=== PATIENT | female | born 1960 | race Caucasian/White ===

== ENCOUNTER 2019-02-04 10:23 | Inpatient (IN) ==
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
[~2019-02-04 10:23] MED LIST: Ropivacaine/PF 0.5% 24.62 ML, EPINEPHrine 0.25 MG, Ketorolac 15 MG, Water for inj. (ste... IR ONE
--- NOTE | 2019-02-04 10:35 | History & Physical Report ---
Date of Encounter: 02/04/19 Time of Encounter: 10:35 24 Hour HP Update - Instructions Instructions: If the History and Physical is less than 30 days old and was completed prior to A.M. admission and or procedure and has NOT been updated on calendar day of procedure please complete this update prior to performing procedure. - Update Patient reports changes in Medical Condition: No Changes in examination, assessment, or condition: No Changes in Medication: No Preop tests/diagnostics Reviewed: Yes Surgery Remains Indicated: Yes Consent for Planned Operative Procedure(s) Verified: Yes - Pre-Operative Checklist Preoperative Checklist Indicated: No Prophylactic Antibiotic Ordered: Yes Is VTE Prophylaxis Indicated?: Yes
[2019-02-04] MEDS ORDERED: Clindamycin 900 MG/50 ML 900 MG/50 ML IV.SOLN IVPB ONE (10:44)
[2019-02-04] MEDS ORDERED: Albuterol 2.5 MG/3 ML NEBULIZER IH ONE (10:44)
[2019-02-04] MEDS ORDERED: Ringers Solution, Lactated 1,000 ML IVC SCH ×2 (10:45→15:55)
[2019-02-04] MEDS ORDERED: *HR* Midazolam HCl 2 MG/2 ML VIAL ONE (11:17)
[2019-02-04] MEDS ORDERED: *HR* Propofol 200 MG/20 ML VIAL IVP ONE (11:17)
[2019-02-04] MEDS ORDERED: *HR* FentaNYL (PF) 100 MCG/2 ML VIAL ONE ×2 (11:17→13:08)
[2019-02-04] MEDS ORDERED: Lidocaine -MPF 2% 2 ML VIAL ONE (11:17)
[2019-02-04] MEDS ORDERED: Dexamethasone 4 MG/ML VIAL ONE ×2 (11:18→12:53)
[2019-02-04] MEDS ORDERED: Ondansetron 4 MG/2 ML VIAL ONE (11:19)
[2019-02-04] MEDS ORDERED: Famotidine 20 MG/2 ML VIAL IVP ONE (11:32)
[2019-02-04] MEDS ORDERED: Acetaminophen IV 1,000 MG/100 ML INFUS..BTL IVPB ONE (11:33)
[2019-02-04] MEDS ORDERED: *HR* OxyCODONE/APAP 10/325 TABLET PO ONE (11:45)
[2019-02-04] MEDS ORDERED: Gabapentin 300 MG CAPSULE PO ONE (11:45)
--- NOTE | 2019-02-04 11:50 | Anesthesia Evaluation PreOp ---
Date of Encounter: 02/04/19 Time of Encounter: 12:00 - Past History Planned Operation: Revision Rt TKA Cardiac History: HTN, Hyperlipidemia Pulmonary History: COPD, ZELDA Dx (does not use CPAP) MINERAL ENGINEER History: Other (Post Laminectomy Syndrome, Spinal Cord Stimulator) Other Medical History: Thyroid, Other ([place]) Anesthesia History: No Prior Anesthetic Complications : No Alcohol Use: none Drug use: none Medications and Allergies Aspirin Enteric Coated [Aspirin EC] 325 mg PO BID 10 Days #20 tablet.dr 02/04/19 [Rx] Celecoxib [Celebrex] 200 mg PO BID 02/04/19 [History] DULoxetine [Cymbalta] 30 mg PO DAILY 02/04/19 [History] Docusate Sodium [Colace] 100 mg PO BID 5 Days #10 capsule 02/04/19 [Rx] Estradiol 0.5 mg PO DAILY 02/04/19 [History] Gabapentin 600 mg PO TID 02/04/19 [History] Levothyroxine [Synthroid] 137 mcg PO DAILY@0630 02/04/19 [History] Lisinopril [Zestril] 10 mg PO DAILY 02/04/19 [History] Omeprazole [PriLOSEC] 40 mg PO DAILY 02/04/19 [History] OxyCODONE/APAP 10/325 [Percocet 10/325 MG] 1 tab PO Q6H 02/04/19 [History] SUMAtriptan Succinate [Imitrex] 6 mg SQ AD PRN 02/04/19 [History] SUMAtriptan Succinate [Imitrex] 100 mg PO AD PRN 02/04/19 [History] Spironolactone 25 mg PO DAILY 02/04/19 [History] Tizanidine HCl 4 mg PO Q6H 02/04/19 [History] dilTIAZem HCl [Diltiazem HCl] 120 mg PO DAILY 02/04/19 [History] Allergy/AdvReac Type Severity Reaction Status Date / Time Penicillins [PCN] Allergy Vomiting Verified 10/18/15 13:50 ciprofloxacin [From Cipro] AdvReac Diarrhea Verified 10/18/15 13:50 morphine AdvReac Migraine Verified 10/18/15 13:50 - Meds/Allergy Pre-op Review Medications Reviewed: Yes Allergies Reviewed: Yes Beta Blockers on Current Med List: No Anesthesia Results - Labs Laboratory Tests 01/30/19 01/30/19 01/30/19 11:50 11:50 11:50 Hgb 12.2 Hct 38.2 Plt Count 316 PT 10.3 INR 0.9 APTT 35.5 Sodium 137 Potassium 4.5 BUN 31 H Creatinine 1.05 - Imaging EKG: report reviewed Additional studies: ECHO 2019 EF 60%, no valvular dysfunction Anesthesia Exam O2 Sat Height 1.65 m Height 1.65 m Weight 119.295 kg Weight 119.295 kg O2 Sat by Pulse Oximetry 92 Vital Signs Temp Pulse Resp BP Pulse Ox 98.7 F 83 18 84/51 92 02/04/19 11:14 02/04/19 11:14 02/04/19 11:14 02/04/19 11:14 02/04/19 11:14 Height: 5'5 Weight: 263 lbs NPO (# of Hours): MN Pain Scale: 0 - HEENT Pupil (Motor): Pupils equal, EOMI Mallampati: III Teeth: Normal Oral Opening: Less than or equal to 3 - MINERAL ENGINEER LOC: Oriented MINERAL ENGINEER Motor: Normal RUE, Normal LUE, Normal RLE, Normal LLE, Normal Face MINERAL ENGINEER Sensory: Normal: RUE, LUE, RLE, LLE, Face - Cardiac Rhythm: Regular Murmur: None JVD: No Carotid Bruit: No - Pulmonary Breath Sounds: bilateral Clear Respiratory Effort: Symmetrical Anesthesia Assess/Plan ASA Score: 3 (HTN ZELDA [place] Chronic Pain) Level of consciousness: Cooperative, Oriented Anesthetic Plan: General, Regional Nerve Block Regional Nerve Block Plan: Adductor canal Reason for No Neuroaxial/Regional Block: Patient refusal, Other (Post Laminectomy Syndrome/ Spinal Stimulator in place/ Refusal) Autologous Blood: No Monitoring Plan: Standard Monitors Recovery Plan: PACU (Discussed GA, Adductor Canal Block, Prefers no spinal)
[2019-02-04] MEDS ORDERED: Ropivacaine/PF 0.5% 30 ML VIAL ONE (11:51)
[2019-02-04] MEDS ORDERED: ROPIVACAINE/PF/NS 0.25% 1 EACH SYRINGE INTRAART ONE (11:57)
[2019-02-04] MEDS ORDERED: Ethanol\\Acetic Acid\\Na Ace\\Ben 1,000 ML IRRIG.SOLN IR ONE ×2 (12:18→12:32)
--- NOTE | 2019-02-04 12:21 | Anesthesia Procedures ---
Date of Encounter: 02/04/19 Time of Encounter: 12:10 Procedures: Anesthesia - Nerve Block Procedure Date: 02/04/19 Time: 12:10 Surgical Procedure: Right TKA Checklist: Correct Patient Identifier, Correct procedure, History checked Correct side: Right Blood Thinner: No Monitor Applied: EKG, BP, Pulse Oximetry Supplemental Oxygen via Nasal Cannula (L/min): 2 Sedation: Versed (mg): 2 Sedation: Fentanyl (mcg): 100 Indication: Post Op Analgesia (per milan) Pre-op Neuro Deficits: No Block Type: Other (adductor, ipack, MG) Catheter placed: No Sterile Technique: Yes Ultrasound used: Yes Anatomy identified: Yes Visual spread of Local: Yes Neuro Stimulation: No Blood on Needle Aspiration: No Smooth Injection of Local: Yes Pain with Injection of Local: No Prep: Chlorhexadine Needle: 22 x 50 mm Stimuplex (adductor), 21 x 100 mm Stimuplex (ipack and MG) Local: Ropivacaine (15cc 0.5% with 4mg decadron adductor, 10cc 0.25% ipack, 10cc 0.25% MG) Volume (cc): 15, 10, 10 Number of Attempts: 1 Complications: None/effective block Vitals: Vital Signs/O2 Sat/Glucose, Most Recent Temp Pulse Resp BP Pulse Ox 98.7 F 83 18 84/51 92 02/04/19 11:14 02/04/19 11:14 02/04/19 11:14 02/04/19 11:14 02/04/19 11:14 Comments: [facility]
[2019-02-04] MEDS ORDERED: Tranexamic Acid 1,000 MG/10 ML VIAL ONE (12:52)
[2019-02-04] MEDS ORDERED: *HR* PHENYLEPHRINE 1,000 MCG/10 ML SYRINGE IVP ONE ×2 (13:03→13:18)
[2019-02-04] MEDS ORDERED: *HR* Phenylephrine 10 MG/ML VIAL ONE (13:19)
--- NOTE | 2019-02-04 14:00 | Orthopedic Operative Note ---
Date of procedure: 02/04/19 Pre-op diagnosis: Aseptic loosening right unicondylar knee replacement Post-op diagnosis: same Procedure: Procedure: Right revision robotic-assisted Total knee replacement Estimated blood loss: 200 cc Hardware: Metal and polyethylene replacement. [place] Femur: 4 Tibia: 4 TS insert: 16 Patella: 36 Exam Under anesthesia: 1 degree flexion contracture 7 degree varus as calculated by the robot full flexion and no instability Procedural Notes: Grade 3/4 changes patellofemoral joint loose femoral and tibial components Operative procedure: The patient was brought to the operating room and placed on the operating room table. After general anesthesia was administered the operative knee was examined. Findings were noted in the exam under anesthesia. The operative extremity was prepped and draped in sterile surgical fashion. The patient received IV antibiotics prior to skin incision. A standard midline incision was made centered over the patella. The incision was made through the old incision extending proximally and distally through the the skin and subcutaneous tissue. A medial parapatellar tendon approach was performed. Care was taken to preserve tissue along the medial aspect of the patella. And to protect the patella tendon. The deep MCL was released off the medial tibia. The infra patella fat pad was excised. The patella was everted and cut was made at the level of the insertion of the quadriceps and patella tendon. The patella was sized the guide was seated and the lug holes are drilled. Knee was brought into flexion. Patient noted to have grade 3/4 arthritic changes undersurface of patella trochlear groove as well as loose femoral and tibial components. Steinmann pins were placed in the tibia and the femur for the tibial and femoral arrays respectively. Checkpoints were also placed in the tibia and the femur for calculation purposes. The knee including the femur and the tibial registered. Osteophytes, ACL and PCL were excised at this point. Extension and flexion were assessed with a valgus stress components were adjusted on the computer to balance the knee. The components on the medial cell removed without incident, both were loose. Femoral cuts were made first with robotic assistance, these included the anterior cut posterior cuts chamfer cuts. Tibial cut was then performed with robotic assistance as well. Bone fragments were removed, as well as the medial and lateral meniscus. The size 4 femoral guide was seated box cut was made lug holes are drilled. The size 4 tibial tray was seated and prepared with the fin cutter. Trial reduction with the 16 TS Corinna revealed extension of 0 degree and 3 degree varus full flexion. No varus valgus instability. Trial reduction revealed excellent patella tracking. All trial components were removed all bony surfaces were irrigated. The Tibia was seated followed by the femur, The selected Corinna size was seated and secured patella. Patient had similar findings for motion and stability. The knee was closed by the PA. The knee was then irrigated out with 2 L of pulse irrigation. The extensor mechanism was closed with #2 FiberWire suture and #2 PDS suture. The subcutaneous tissue was then irrigated and closed deep with #1 PDS suture superficially with 0 PDS suture and skin was closed with zip tie The patient was then placed in a sterile dressing and a postoperative brace extubated and transferred to recovery room in stable condition. Anesthesia: GETA Surgeon: Caden Leon Was there an bindery assistant present: No Estimated blood loss (cc): 200 Condition: stable Disposition: PACU
--- NOTE | 2019-02-04 15:04 | Anesthesia Evaluation Post Op ---
Date of Encounter: 02/04/19 Time of Encounter: 15:02 - Vital Signs Vital Signs: Last Vital Signs Temp 99 F 02/04/19 14:35 Pulse 84 02/04/19 14:45 Resp 14 02/04/19 14:45 BP 106/56 02/04/19 14:45 Pulse Ox 94 02/04/19 14:45 - Lungs Lungs: Clear Ascult./Percussion - Airway Airway: Non-obstructed - Cardiovascular Regular Rate - Mental Status Mental Status: Alert & Oriented, Answers Appropriately - Pain Pain Scale: 1 - Nausea Vomiting Nausea Vomiting: Not Present - Hydration Hydration: NPO - Discharge PostOp Status: Transfer Patient to floor
[2019-02-04 15:19] LABS: Hematocrit 33.7 % (35.3-44.9)
[2019-02-04 15:21] LABS: Hemoglobin 10.6 g/dL (11.5-15.4)
[2019-02-04] MEDS ORDERED: Sennosides 8.6 MG TABLET PO PRN (15:55)
[2019-02-04] MEDS ORDERED: *HR* OxyCODONE Immed Rel 5 MG TABLET PO PRN (15:55)
[2019-02-04] MEDS ORDERED: Ondansetron 4 MG/2 ML VIAL IVP PRN (15:55)
[2019-02-04] MEDS ORDERED: MOM Conc 10 ML UD.LIQ PO PRN (15:55)
[2019-02-04] MEDS ORDERED: Naloxone 0.4 MG/ML INJ IVP PRN (15:55)
[2019-02-04] MEDS ORDERED: SUMAtriptan 6 MG/0.5 ML SQ PRN (15:55)
[2019-02-04] MEDS ORDERED: *HR* HYDROmorphone (PF) 1 MG/ML SYRINGE IVP PRN (15:55)
[2019-02-04] MEDS ORDERED: SUMAtriptan succinate 50 MG TABLET PO PRN (15:55)
[2019-02-04] MEDS ORDERED: *HR* Promethazine 25 MG/ML VIAL IVP PRN (15:55)
[2019-02-04] MEDS: Clindamycin 900 MG/50 ML 900 MG/50 ML IV.SOLN IVPB SCH ×2 (16:15→23:19)
[2019-02-04] MEDS: tiZANidine 4 MG TABLET PO SCH ×2 (16:15→23:20)
[2019-02-04] MEDS ORDERED: HYDROcodone BIT/Homatropine 5 MG TABLET PO PRN (17:04)
[2019-02-04] MEDS ORDERED: Acetaminophen 325 MG TABLET PO PRN (17:08)
[2019-02-04] MEDS: Ascorbic Acid 500 MG TABLET PO SCH (18:16)
[2019-02-04] MEDS: *HR* Enoxaparin 30 MG/0.3 ML SYRINGE SQ SCH (18:16)
[2019-02-04] MEDS ORDERED: 0.9 % Sodium Chloride 1,000 ML ONE (19:11)
[2019-02-04] MEDS ORDERED: 0.9 % Sodium Chloride 1,000 ML IV ONE (19:17)
[2019-02-04] MEDS ORDERED: Acetaminophen IV 1,000 MG/100 ML INFUS..BTL IVPB PRN (19:43)
[2019-02-04] MEDS: Gabapentin 300 MG CAPSULE PO SCH ×2 (19:56→19:58)
[2019-02-04] MEDS: Celecoxib 200 MG CAPSULE PO SCH (19:57)
[2019-02-04 20:00] LABS: Basophils % 0.2 %; Eosinophils # 0.1 K/mcL (0.0-0.6); Eosinophils % 0.4 %; Hematocrit 29.4 % (35.3-44.9); Hemoglobin 9.2 g/dL (11.5-15.4); Lymphocytes # 0.8 K/mcL (0.6-4.6); Mean Corpuscular HGB Conc 31.3 g/dL (31.6-35.5); Mean Corpuscular Hemoglobin 32.1 pg (28.0-33.3); Mean Corpuscular Volume 102.4 fL (83.0-100.0); Mean Platelet Volume 9.9 fL (9.4-12.4); Monocytes # 0.1 K/mcL (0.0-1.3); Neutrophils # 10.4 K/mcL (1.6-8.9); Platelet Count 264 K/mcL (140-400); Red Blood Count 2.87 M/mcL (3.82-4.97); Red Cell Distribution Width 13.5 % (11.5-14.5); Segmented Neutrophils % 90.4 %
[2019-02-04 20:05] LABS: White Blood Count 11.5 K/mcL (4.3-11.1)
[2019-02-04 20:22] LABS: Albumin 3.6 g/dL (3.5-5.7); Bilirubin,Total 0.3 mg/dL (0.3-1.0); Calcium 8.1 mg/dL (8.6-10.3); Globulin 1.8 g/dL (2.4-3.5); Potassium 6.8 mEq/L (3.5-5.1); Total Protein 5.4 g/dL (6.4-8.9)
[2019-02-04] MEDS ORDERED: 0.9 % Sodium Chloride 1,000 ML IVC SCH (20:30)
--- NOTE | 2019-02-04 22:15 | Physician Discharge Referral ---
ExtendedCare Referral Info Transfer To: [facility] Provider in Charge: Dr. Leon - Diagnosis (1) Status post revision of total replacement of right knee Priority: Primary Status: Acute (2) History of unicondylar arthroplasty of right knee Priority: Primary Status: Chronic (3) Arthritis of right knee Priority: Primary Status: Chronic (4) HTN (hypertension) Priority: Secondary Status: Chronic (5) COPD (chronic obstructive pulmonary disease) Priority: Secondary Status: Chronic (6) ZELDA (obstructive sleep apnea) Priority: Secondary Status: Chronic (7) Obesity, morbid, BMI 40.0-49.9 Priority: Secondary Status: Chronic (8) Thyroid disorder Priority: Secondary Status: Chronic (9) GERD (gastroesophageal reflux disease) Priority: Secondary Status: Chronic (10) Migraines Priority: Secondary Status: Chronic (11) Anemia Priority: Secondary Status: Resolved (12) Elevated liver enzymes Priority: Secondary Status: Resolved (13) Hyponatremia Priority: Secondary Status: Acute (14) RAMON (acute kidney injury) Priority: Secondary Status: Resolved (15) Hyperkalemia Priority: Secondary Status: Resolved (16) Hypocalcemia Priority: Secondary Status: Resolved Expected Duration of Placement: <30 days Prognosis: Good Aware of Diagnosis: Patient Aware of Prognosis: Patient - Transfer Medications Home Medications: Aspirin Enteric Coated [Aspirin EC] 325 mg PO BID 10 Days #20 tablet. 02/04/19 [Rx] Celecoxib [Celebrex] 200 mg PO BID 02/04/19 [History] DULoxetine [Cymbalta] 30 mg PO DAILY 02/04/19 [History] Docusate Sodium [Colace] 100 mg PO BID 5 Days #10 capsule 02/04/19 [Rx] Estradiol 0.5 mg PO DAILY 02/04/19 [History] Gabapentin 600 mg PO TID 02/04/19 [History] Levothyroxine [Synthroid] 137 mcg PO DAILY@0630 02/04/19 [History] Omeprazole [PriLOSEC] 40 mg PO DAILY 02/04/19 [History] OxyCODONE/APAP 10/325 [Percocet 10/325 MG] 1 tab PO Q6H 02/04/19 [History] SUMAtriptan Succinate [Imitrex] 6 mg SQ AD PRN 02/04/19 [History] SUMAtriptan Succinate [Imitrex] 100 mg PO AD PRN 02/04/19 [History] Spironolactone 25 mg PO DAILY 02/04/19 [History] Tizanidine HCl 4 mg PO Q6H 02/04/19 [History] dilTIAZem HCl [Diltiazem HCl] 120 mg PO DAILY 02/04/19 [History] Allergies/Adverse Reactions: Allergy/AdvReac Type Severity Reaction Status Date / Time Penicillins [PCN] Allergy Vomiting Verified 10/18/15 13:50 ciprofloxacin [From Cipro] AdvReac Diarrhea Verified 10/18/15 13:50 morphine AdvReac Migraine Verified 10/18/15 13:50 - Respiratory Orders None Smoking Cessation: Smoking cessation has been advised. For more information, call the [employer] Tobacco Quit Line at 2-620-UNUV-NOW. - Lab Orders Lab Orders: Other (include drug levels w/frequency) (monitor CBC and BMP, repeat 48hrs) - Ancillary Orders May use pressure relief devices daily prn, May go on JOB w/family/respon democrat w/meds at nurse discretion PRN, May consult with Dentist, Geophysical Operator, House Calls Nurse PRN - Advance Directives Code Status: Full Code - Mobility Orders Chair, Ambulate - Rehabiliation Orders Rehab Potential: Good Rehab Orders: ROM Exercises, Evaluation for Physical Therapy, Evaluation for Occupational Therapy Other: Opsite dressing, leave intact until first post-operative visit. If dressing becomes >50% saturated, contact office, remove dressing and place appropriate dressing in its place. Do not allow for dressing to get wet. Zipline/Tyler in place, plan to remove at post-operative day #14-16. Total Joint Precautions x 6 weeks Apply cold therapy wrap 3-6x/day for 20 minutes at a time. Encourage ambulation throughout the day Use Incentive spirometer 10x/hour. Elevate affected extremity above heart as tolerated. Brace: Wear knee immobilizer at night x 2 weeks - Treatments Skin tear care topically daily PRN per policy - Diet Orders Regular CERTIFICATION: I certify that the transfer of the above named patient to an Extended Care Facility is necessary for the continuing treatment of the diagnosis listed. The above information is true and accurate reflection of patient's current condition. Confidential - Redisclosure prohibited without a patient's written consent.
[2019-02-05] MEDS: tiZANidine 4 MG TABLET PO SCH ×5 (00:58→23:47)
--- NOTE | 2019-02-05 01:33 | Internal Medicine Consult Note ---
Date of Encounter: 02/05/19 Time of Encounter: 00:30 - Assessment and Plan (1) Status post revision of total replacement of right knee Current Visit: Yes Status: Acute Assessment and plan: Acute status post revision of total replacement of right knee. Patient underwent right revision robotic-assisted total knee replacement today. Became hypotensive post-procedure. Abnormal labs needed addressed as well. Consult to Hospitalist placed for medical management. Hgb 9.2, potassium 6.8, creatinine 2.11, GFR 24, Calcium 8.1, AST 54, ALT 70. On exam, pt. is sleepy but answers questions appropriately when awake. Post IV fluid bolus, BP has been >100 systolically. HR 83 at time of exam. Patient reports back pain and pain in right knee. D/t continued hypotension, opioid pain medications held for now. Nurse instructed to hold HTN medications for now as well. Monitoring f/u labs for improvement in above lab values. Pt. is high risk for further morbidity and complications d/t current status post revision of total replacement of right knee, current hypotension, current hyperkalemia, current hyponatremia, current a I current el evated liver enzymes, drop in Hgb, current leukocytosis, and comorbidities/risk factors. Inpatient. (2) Drop in hemoglobin Current Visit: Yes Status: Acute Assessment and plan: Acute drop in Hgb. 10.6 at 14:49 and 9.2 at 19:46. Estimated blood loss during procedure 200 cc. Type and screen ordered. Monitor f/u labs. (3) Leukocytosis Current Visit: Yes Status: Acute Assessment and plan: Acute leukocytosis w/WBC of 11.5. Likely reactive. Pt. received IVPB clindamycin pre and post-procedure. No identifiable infection source. Will monitor a.m. labs for improvement. Pt. afebrile and asymptomatic. Qualifiers: Leukocytosis type: other Qualified Code(s): D72.828 - Other elevated white blood cell count (4) Hyponatremia Current Visit: Yes Status: Acute Assessment and plan: Acute hyponatremia w/sodium of 131. Pt. received 1L 0.9 bolus for hypotension and is receiving 0.9 maintenance fluids at 75/hr. Continuous cardiac telemetry. Monitor f/u labs for improvement. (5) Hyperkalemia Current Visit: Yes Status: Acute Assessment and plan: Acute hyperkalemia w/potassium of 6.8. Recheck at 22:20 after IV fluid bolus was 6.7. 15 gm PO kayexalate ordered and administered. F/u K level at 02:00. Will administer additional dosing of kayexalate if warranted and recheck K at 05:00. Continuous cardiac telemetry. EKG shows sinus rhythm with possible right ventricular conduction delay and minimal ST depressions. Monitor closely. (6) RAMON (acute kidney injury) Current Visit: Yes Status: Acute Assessment and plan: Acute kidney injury. Pt. denies hx of CKD. Creatinine 2.11 and GFR 24 post- surgery. Pt. received 1L 0.9 IV fluid bolus for hypotension and is receiving 0.9 IV maintenance fluids at 75/hr. Monitor f/u labs and I&O. Naproxen on hold. Will avoid other nephrotoxins. (7) Elevated liver enzymes Current Visit: Yes Status: Acute Assessment and plan: Acutely elevated liver enzymes. AST 54 and ALT 70. No hx of liver disease or alcohol abuse. Will avoid acetaminophen at this time. Repeat hepatic panel in a.m. labs to assess for improvement after IV fluid resuscitation. (8) Hypocalcemia Current Visit: Yes Status: Acute Assessment and plan: Acute hypocalcemia w/calcium of 8.1. PO calcium carbonate ordered GABY. Monitor f/u labs. (9) HTN (hypertension) Current Visit: Yes Status: Chronic Assessment and plan: Hx of chronic HTN. Monitor pt. and VS. Patient is currently hypotensive, so holding HTN medications for now. If pt. becomes hypertensive, will continue patient's spironolactone, lisinopril, and diltiazem. Qualifiers: Hypertension type: essential hypertension Qualified Code(s): I10 - Essenti al (primary) hypertension (10) COPD (chronic obstructive pulmonary disease) Current Visit: Yes Status: Chronic Assessment and plan: Hx of chronic COPD. Stable. Monitor. Supplemental O2 with titration and SPO2 monitoring. Qualifiers: COPD type: unspecified COPD Qualified Code(s): J44.9 - Chronic obstructive pulmonary disease, unspecified (11) GERD (gastroesophageal reflux disease) Current Visit: Yes Status: Chronic Assessment and plan: Hx of chronic GERD. Continue pts. Prilosec. 4 mg IVP Zofran every 8 hour when necessary for nausea and vomiting. Qualifiers: Esophagitis presence: esophagitis presence not specified Qualified Code(s): K21.9 - Gastro-esophageal reflux disease without esophagitis (12) Migraines Current Visit: Yes Status: Chronic Assessment and plan: Hx of chronic migraines. Continue pts. Imitrex and monitor closely. Qualifiers: Migraine type: with aura Status migrainosus presence: with status migrainosus Intractability: intractable Qualified Code(s): G43.111 - Migraine with aura, intractable, with status migrainosus (13) ZELDA (obstructive sleep apnea) Current Visit: Yes Status: Chronic Assessment and plan: Hx of chronic ZELDA. Pt. does not currently use BiPAP/CPAP. Supplemental O2 with titration and SPO2 monitoring. (14) Obesity, morbid, BMI 40.0-49.9 Current Visit: Yes Status: Chronic Assessment and plan: Hx of chronic morbid obesity. Encourage lifestyle modifications and dietary changes. (15) DVT prophylaxis Current Visit: Yes Status: Acute Assessment and plan: Bilateral foot pumps for DVT prophylaxis. - Time Spent With Patient Total time spent is greater than 50% in coordination of care (as documented) at patient's floor/unit and/or counseling patient: Greater than 35 minutes Internal Medicine - CN: HPI - Data of Consult Patient: new to practice Consult date: 02/05/19 Requesting Physician: Caden Leon MD - Consult Narrative History of present illness: Ms. Gonzales is a 58 year old female w/PMH of thyroid disease, arthritis, COPD, HTN, GERD, migraines, and chronic back pain presents for Hospitalist consult for medical management of several issues post-total right knee replacement today. Post-surgery, patient was found to be hypotensive and given a bolus of IV fluids. Consult to Hospitalist placed for medical management. Hgb 9.2, potassium 6.8, creatinine 2.11, GFR 24, Calcium 8.1, AST 54, ALT 70. On exam, pt. is sleepy but answers questions appropriately when awake. Post IV fluid bolus, BP has been >100 systolically. HR 83 at time of exam. Patient reports back pain and pain in right knee. D/t continued hypotension, opioid pain medications held for now. Nurse instructed to hold HTN medications for now as well. Patient denies nausea, vomiting, headache, unusual bleeding, abdominal pain, numbness, tingling, dizziness, lightheadedness, chest pain, or SOB. Past Med Surg Social Fam HX - Past Medical History Source: patient, old records reviewed Medical history: arthritis, CHF, COPD, GERD, hypertension, migraine, thyroid disease, other Additional medical history: DDD, RA Psychiatric history: no psych history - Past Surgical History Surgical History: appendectomy, Additional surgical history: TONSILS. LEFT FOOT. BREAST LUMP RIGHT. ENDOMETRIOSIS. SKYE CARP. TUNNEL. SKYE KNEE SCOPE. TOTAL KNEE SKYE. GALL BLAD NIKITA. LUMBAR. RIGHT SHOULDER. LEFT FOOT ARCH. RIGHT FOOT ARCH. SPINAL CORD STIMULATOR - Social History Smoking Status: Never smoker Smokeless Tobacco Status: No Alcohol use: none Drug use: none Current living situation: Home Activity Level: Independent ambulation Recent Out of Country Travel Within the Last 8 Weeks: No Exposure or Possible Exposure to Illness During Travel: No - Family History Father Race: Family Member Ethnicity: Non- Living Status: Still Living Hx Family Cardiac Disorders: Yes (CAD) Hx Family Endocrine Disorder: Yes (DM) Mother Race: Family Member Ethnicity: Non- Living Status: Still Living Hx Family Cardiac Disorders: Yes (HTN) Hx Family Cancer: Yes (Breast (Double mastectomy)) Hx Family Endocrine Disorder: Yes (Thyroid disease) Brother Race: Family Member Ethnicity: Non- Living Status: Still Living Hx Family Medical Disorders: No Sister Race: Family Member Ethnicity: Non- Living Status: Still Living Hx Family Medical Disorders: No - Constitutional Constitutional: as per HPI - EENT Eyes: as per HPI Ears: as per HPI Nose, mouth and throat: as per HPI - Breasts Breasts: as per HPI - Cardiovascular Cardiovascular ROS IM: as per HPI - Respiratory Respiratory: as per HPI - Gastrointestinal Gastrointestinal: as per HPI - Genitourinary Genitourinary: as per HPI Menstruation: as per HPI - Musculoskeletal Musculoskeletal ROS IM: as per HPI, back pain, other (Rt knee pain post total knee replacement) - Integumentary Integumentary IM: as per HPI - Neurological Neurological ROS: as per HPI - Psychiatric Psychiatric: as per HPI - Endocrine Endocrine IM: as per HPI - Hematologic/Lymphatic Hematologic/Lymphatic: as per HPI - Allergic/Immunologic Allergic/Immunologic: as per HPI Internal Medicine - CN: Meds Aspirin Enteric Coated [Aspirin EC] 325 mg PO BID 10 Days #20 tablet. 02/04/19 [Rx] Celecoxib [Celebrex] 200 mg PO BID 02/04/19 [History] DULoxetine [Cymbalta] 30 mg PO DAILY 02/04/19 [History] Docusate Sodium [Colace] 100 mg PO BID 5 Days #10 capsule 02/04/19 [Rx] Estradiol 0.5 mg PO DAILY 02/04/19 [History] Gabapentin 600 mg PO TID 02/04/19 [History] Levothyroxine [Synthroid] 137 mcg PO DAILY@0630 02/04/19 [History] Lisinopril [Zestril] 10 mg PO DAILY 02/04/19 [History] Omeprazole [PriLOSEC] 40 mg PO DAILY 02/04/19 [History] OxyCODONE/APAP 10/325 [Percocet 10/325 MG] 1 tab PO Q6H 02/04/19 [History] SUMAtriptan Succinate [Imitrex] 6 mg SQ AD PRN 02/04/19 [History] SUMAtriptan Succinate [Imitrex] 100 mg PO AD PRN 02/04/19 [History] Spironolactone 25 mg PO DAILY 02/04/19 [History] Tizanidine HCl 4 mg PO Q6H 02/04/19 [History] dilTIAZem HCl [Diltiazem HCl] 120 mg PO DAILY 02/04/19 [History] Allergy/AdvReac Type Severity Reaction Status Date / Time Penicillins [PCN] Allergy Vomiting Verified 10/18/15 13:50 ciprofloxacin [From Cipro] AdvReac Diarrhea Verified 10/18/15 13:50 morphine AdvReac Migraine Verified 10/18/15 13:50 Hospitalist - CN: Exam - Constitutional Vitals: Temp Pulse Resp BP Pulse Ox 97.3 F L 79 16 103/68 94 02/04/19 23:21 02/05/19 00:53 02/04/19 23:21 02/05/19 00:53 02/04/19 23:21 General appearance IM: Present: cooperative, mild distress (Back pain and pain in RLE), A&O X 3, morbidly obese, pleasant, answers questions appropriately Exam: Patient examined at bedside. Pt. reports back pain which is chronic as well as pain in RLE r/t total knee replacement today. Pt. denies any other sx or complaints at this time. VS: 97.3F temp, HR 85, RR 16, BP 116/74, SPO2 94% on 3 L via nasal cannula. - Head Head exam: Present: atraumatic - Eye Eye exam: Present: PERRL, conjuntiva pink, sclera anicteric Pupils: Present: normal accommodation, PERRL - ENT ENT exam: Present: normal exam - Neck Neck exam general surgery: Present: normal inspection - Respiratory Respiratory exam: Present: CTAB - Cardiovascular Cardiovascular exam IM: Present: RRR, +S1, +S2 - GI/Abdominal GI/Abdominal exam IM: Present: soft, no peritoneal signs - Rectal Rectal exam: Present: deferred - Additional comments: exam deferred. - Extremities Exam Extremities exam IM: Present: pedal edema (Non-pitting), tenderness (RLE), warm, radial pulses palpable and symmetrical - Back Exam Back exam: Present: normal inspection - Neurological Exam Neurological exam: Present: alert, CN II-XII intact, oriented X3, no focal deficits, strengths equal and symetr throughout - Psychiatric Psychiatric exam: Present: normal affect, normal mood - Skin Skin exam IM: Present: dry, intact Internal Medicine - CN: Reslt - Labs CBC & Chem 7: 02/05/19 02:27 02/04/19 22:20 Labs: Short CBC 02/04/19 02/04/19 Range/Units 14:49 19:46 WBC 11.5 H (4.3-11.1) K/mcL Hgb 10.6 L D 9.2 L (11.5-15.4) g/dL Hct 33.7 L 29.4 L (35.3-44.9) % Plt Count 264 (140-400) K/mcL Neutrophils # 10.4 H (1.6-8.9) K/mcL BMP 02/04/19 02/04/19 19:46 22:20 Sodium 131 L Potassium 6.8 H* 6.7 H* Chloride 103 Carbon Dioxide 22 L BUN 49 H Creatinine 2.11 H Glucose 170 H Calcium 8.1 L Liver Function 02/04/19 Range/Units 19:46 Total Bilirubin 0.3 (0.3-1.0) mg/dL AST 54 H (13-39) Units/L ALT 70 H (7-52) Units/L Alkaline Phosphatase 120 H (34-104) Units/L Albumin 3.6 (3.5-5.7) g/dL - EKG Data EKG shows normal: sinus rhythm - EKG Data Prior EKG available for review: no EKG comments: 02/05/19 02:08 EKG dated 02/04/19 shows sinus rhythm with possible right ventricular conduction delay and minimal ST depression. - Impressions Impressions Knee X-Ray 02/04/19 01:00 IMPRESSION: Status post right knee arthroplasty D/ / Dillon Irene MD / Dillon Irene MD Interpreting Provider: Dillon Irene MD - Diagnostic Studies Other Images Additional comments: Impressions Knee X-Ray 02/04/19 01:00 IMPRESSION: Status post right knee arthroplasty D/ / Dillon Irene MD / Dillon Irene MD Interpreting Provider: Dillon Irene MD Consult Discharge Plan - Plan Referrals: Yuliya Carranza MD [Primary Care Provider] -
[2019-02-05] MEDS: 0.9 % Sodium Chloride 1,000 ML IVC SCH (02:08)
[2019-02-05 02:48] LABS: Basophils % 0.1 %; Hematocrit 32.5 % (35.3-44.9); Immature Granulocytes % 0.7 % (0-4); Lymphocytes # 0.9 K/mcL (0.6-4.6); Lymphocytes % 5.8 %; Mean Corpuscular HGB Conc 30.8 g/dL (31.6-35.5); Mean Corpuscular Hemoglobin 31.3 pg (28.0-33.3); Mean Corpuscular Volume 101.9 fL (83.0-100.0); Mean Platelet Volume 10.2 fL (9.4-12.4); Monocytes # 0.3 K/mcL (0.0-1.3); Neutrophils # 13.6 K/mcL (1.6-8.9); Platelet Count 308 K/mcL (140-400); Red Blood Count 3.19 M/mcL (3.82-4.97); Red Cell Distribution Width 13.3 % (11.5-14.5); Segmented Neutrophils % 91.4 %; White Blood Count 14.9 K/mcL (4.3-11.1)
[2019-02-05 03:05] LABS: Calcium 8.7 mg/dL (8.6-10.3); Potassium 6.3 mEq/L (3.5-5.1)
[2019-02-05 03:06] LABS: Albumin 4.2 g/dL (3.5-5.7); Albumin/Globulin Ratio 1.9 (1.1-2.2); Bilirubin,Direct 0.1 mg/dL (0.0-0.2); Bilirubin,Indirect 0.3 mg/dL (0.0-1.2); Bilirubin,Total 0.4 mg/dL (0.3-1.0); Globulin 2.2 g/dL (2.4-3.5); Total Protein 6.4 g/dL (6.4-8.9)
[2019-02-05] MEDS: *HR* Enoxaparin 30 MG/0.3 ML SYRINGE SQ SCH ×2 (05:46→18:42)
--- NOTE | 2019-02-05 06:44 | Orthopedics Progress Note ---
Date of Encounter: 02/05/19 Time of Encounter: 06:43 Subjective Interval history: Patient was seen this morning doing well without complaints. Afebrile vital signs stable. Operative extremity: Neurovascularly intact Dressing clean dry and intact Calves nontender Assessment and plan: Continue with postoperative care Hyperkalemia, followed by hospitalist hematocrit 32 Objective Vital signs: Vital Signs Temp Pulse Resp BP Pulse Ox 02/05/19 05:38 87 109/70 02/05/19 04:23 93/61 02/05/19 03:08 86 113/72 02/05/19 02:59 98.7 F 88 18 113/69 98 02/05/19 02:23 88 112/76 02/05/19 02:08 94 101/68 02/05/19 01:53 80 100/66 02/05/19 01:38 79 103/67 02/05/19 01:23 76 110/71 02/05/19 01:08 84 117/75 02/05/19 00:53 79 103/68 02/05/19 00:38 73 111/74 02/05/19 00:23 77 102/67 02/05/19 00:08 82 109/71 02/04/19 23:53 80 102/66 02/04/19 23:38 82 110/70 02/04/19 23:21 97.3 F L 85 16 116/74 94 02/04/19 22:40 80 115/55 02/04/19 22:08 76 95/63 02/04/19 21:53 77 95/63 02/04/19 21:38 74 97/62 02/04/19 21:23 107/80 02/04/19 21:11 76 100/61 02/04/19 21:00 72 100/64 02/04/19 20:53 73 87/56 02/04/19 20:38 73 92/58 02/04/19 20:29 78 90/59 02/04/19 20:23 97.3 F L 84 18 98/62 94 02/04/19 20:20 77 98/62 02/04/19 20:13 75 88/58 02/04/19 19:55 82/56 02/04/19 19:51 90/52 02/04/19 19:35 85/50 02/04/19 19:30 75/42 02/04/19 19:25 81/46 02/04/19 19:21 83/48 02/04/19 16:03 98.3 F 87 14 103/68 97 02/04/19 15:15 98.1 F 82 12 105/47 94 02/04/19 15:05 98.1 F 85 14 100/48 95 02/04/19 14:55 81 13 94/36 96 02/04/19 14:45 84 14 106/56 94 02/04/19 14:35 99 F 87 14 114/65 96 02/04/19 12:37 86 16 102/57 98 02/04/19 12:20 86 14 97/52 96 02/04/19 12:08 81 18 99/60 91 02/04/19 11:14 98.7 F 83 18 84/51 92 Intake and Output 02/04/19 02/04/19 02/05/19 15:59 23:59 07:59 Intake Total 50 / 100 50 / 100 1800 / 1800 Output Total 300 / 1450 1150 / 1450 Balance -250 / -1350 -1100 / -1350 1800 / 1800 Intake: IV Fluids 50 / 100 50 / 100 1050 / 1050 0.9 % Sodium Chloride 1,000 ML 1000 / 1000 @ 999 mls/hr IV ONCE ONE Rx#: [id number] Cleocin Premix 900 MG/50 ML 900 50 / 100 50 / 100 50 / 50 mg In 50 ml @ 50 mls/hr IVPB Q8HR [facility] Rx#:[id number] Oral 750 / 750 Output: Estimated Blood Loss 300 / 300 Straight Cath 1150 / 1150 Other: Stool Size Large Stool Consistency soft Stool Characteristics Normal for Patient Stool Color Brown # Voids 1 # Bowel Movements 1 Weight 119.295 kg 124.3 kg Blood Glucose* 159 Patient Weight 02/05/19 23:59 Weight 124.3 kg - Labs CBC & BMP: 02/05/19 02:27 02/05/19 02:27 Labs: Abnormal lab results WBC 14.9 K/mcL (4.3-11.1) H 02/05/19 02:27 RBC 3.19 M/mcL (3.82-4.97) L 02/05/19 02:27 Hgb 10.0 g/dL (11.5-15.4) L 02/05/19 02:27 Hct 32.5 % (35.3-44.9) L 02/05/19 02:27 MCV 101.9 fL (83.0-100.0) H 02/05/19 02:27 MCHC 30.8 g/dL (31.6-35.5) L 02/05/19 02:27 Neutrophils # 13.6 K/mcL (1.6-8.9) H 02/05/19 02:27 Sodium 134 mEq/L (136-145) L 02/05/19 02:27 Potassium 6.3 mEq/L (3.5-5.1) H 02/05/19 02:27 Carbon Dioxide 20 mEq/L (23-29) L 02/05/19 02:27 BUN 41 mg/dL (6-20) H 02/05/19 02:27 Creatinine 1.48 mg/dL (0.60-1.20) H 02/05/19 02:27 Est GFR ( Amer) 44 (> 60) L 02/05/19 02:27 Est GFR (Non-Af Amer) 36 (> 60) L 02/05/19 02:27 BUN/Creatinine Ratio 28 (6-26) H 02/05/19 02:27 Glucose 173 mg/dL (70-105) H 02/05/19 02:27 POC Glucose 159 mg/dL (70-99) H 02/04/19 20:21 Calcium 8.1 mg/dL (8.6-10.3) L 02/04/19 19:46 AST 46 Units/L (13-39) H 02/05/19 02:27 ALT 80 Units/L (7-52) H 02/05/19 02:27 Alkaline Phosphatase 135 Units/L (34-104) H 02/05/19 02:27 Serum Total Protein 5.4 g/dL (6.4-8.9) L 02/04/19 19:46 Globulin 2.2 g/dL (2.4-3.5) L 02/05/19 02:27 Consult Discharge Plan - Plan Referrals: Yuliya Carranza MD [Primary Care Provider] -
[2019-02-05] MEDS ORDERED: Diltiazem CD (24hr) 120 MG CAPSULE PO SCH (09:00)
[2019-02-05] MEDS ORDERED: Spironolactone 25 MG TABLET PO SCH (09:00)
[2019-02-05] MEDS: Celecoxib 200 MG CAPSULE PO SCH ×2 (09:15→20:33)
[2019-02-05] MEDS: Multivit/Ca/Min/Fe/FA 1 TAB TABLET PO SCH (09:17)
[2019-02-05] MEDS: *HR* OxyCODONE/APAP 5/325 TABLET PO PRN ×3 (09:18→18:43)
[2019-02-05] MEDS: Ascorbic Acid 500 MG TABLET PO SCH ×2 (09:18→17:05)
[2019-02-05] MEDS: Gabapentin 300 MG CAPSULE PO SCH ×3 (09:19→20:32)
--- NOTE | 2019-02-05 11:58 | Event Note ---
Date of Encounter: 02/05/19 Time of Encounter: 15:00 I have seen and independently assessed this patient and I agree with plan per night team Plan Hyperkalemia. Poatssium was down to 5.9 this am after kayexalate administration. Will give on 45gm dose of kayexalate and repeat potassium this pm Hypotension post surgery. CBC stable. BP stable now. Possibly anesthesia related. Monitor BP. No acute signs of infection/ bleeding/hypovolemia
--- NOTE | 2019-02-05 13:08 | Electrocardiograph Report ---
[address] [address] Test Date: 2019-02-04 Pat Name: Janice Gonzales Department: 114 Room: [facility] Gender: F Travel Clerk: : 1960 Requested By: Ela Trivedi Order Number: [id number] Reading MD: Clover Pritchard Measurements Intervals [place] Rate: 78 P: 37 MA: 162 QRS: 26 QRSD: 81 T: 43 QT: 416 QTc: 449 Interpretive Statements SINUS RHYTHM POSSIBLE RIGHT VENTRICULAR CONDUCTION DELAY Nonspecific ST-T wave changes Electronically Signed On 02-05-2019 13:06:45 EDT by Clover Pritchard
--- NOTE | 2019-02-05 16:41 | Event Note ---
Date of Encounter: 02/05/19 Time of Encounter: 13:30 PCR - POD#1 s/p right TKR revision 02/04/19 Patient seen at bedside, without complaints. A&O x 3 Afebrile, vital signs stable. Dressings c/d/i, no calf tenderness to palpation, good dorsiflexion of foot, sensation intact distally. Labs reviewed. H/H - 10.0/32.5 stable, asymptomatic Appreciate hospitalist on board for medical management of postoperative hypotension and labs. - has received kayexalate K improved from 6.7 to 5.9, Na improved to 134, kidney function improving compared to preop labs. liver enzymes elevated and agree with hospitalist recommendation to hold tylenol as well as NSAIDs. Pain control: adequate Participating in PT. All questions and concerns addressed. Educated on use of incentive spirometer. Encouraged ambulation and proper hydration. Patient educated on post-operative restrictions and post-operative care. Assessment and plan: Continue with postoperative care Discharge plan: ECF when medically stable
[2019-02-05] MEDS ORDERED: *HR* OxyCODONE/APAP 5/325 TABLET PO PRN (19:01)
[2019-02-05] MEDS: Acetaminophen IV 1,000 MG/100 ML INFUS..BTL IVPB SCH (21:45)
[2019-02-06] MEDS ORDERED: Acetaminophen IV 1,000 MG/100 ML INFUS..BTL IVPB SCH
[2019-02-06] MEDS: Acetaminophen IV 1,000 MG/100 ML INFUS..BTL IVPB SCH ×4 (02:39→19:47)
[2019-02-06] MEDS: 0.9 % Sodium Chloride 1,000 ML IVC SCH ×2 (02:39→17:59)
[2019-02-06] MEDS: Temazepam 15 MG CAPSULE PO PRN (03:04)
[2019-02-06] MEDS: *HR* Enoxaparin 30 MG/0.3 ML SYRINGE SQ SCH ×2 (05:43→18:01)
[2019-02-06] MEDS: *HR* OxyCODONE Immed Rel 5 MG TABLET PO PRN ×3 (05:45→14:56)
[2019-02-06] MEDS: tiZANidine 4 MG TABLET PO SCH ×4 (05:46→19:55)
[2019-02-06] MEDS: Gabapentin 300 MG CAPSULE PO SCH ×3 (08:11→19:46)
[2019-02-06] MEDS: Celecoxib 200 MG CAPSULE PO SCH ×2 (08:11→19:47)
[2019-02-06] MEDS: Ascorbic Acid 500 MG TABLET PO SCH ×2 (08:11→17:57)
[2019-02-06] MEDS: Multivit/Ca/Min/Fe/FA 1 TAB TABLET PO SCH (08:11)
--- NOTE | 2019-02-06 08:30 | Orthopedics Progress Note ---
Date of Encounter: 02/06/19 Time of Encounter: 08:29 Subjective Interval history: Patient was seen this morning doing well without complaints. Afebrile vital signs stable. Operative extremity: Neurovascularly intact Dressing clean dry and intact Calves nontender Assessment and plan: Continue with postoperative care Potassium normalized, BP stable, plan for discharge today or tomorrow. Objective Vital signs: Vital Signs Temp Pulse Resp BP Pulse Ox 02/06/19 06:48 98.5 F 79 16 129/65 98 02/06/19 03:15 111/65 02/06/19 02:23 98.1 F 84 16 100/66 98 02/05/19 23:39 98.2 F 99 17 102/64 96 02/05/19 20:38 99 02/05/19 19:17 98.7 F 101 17 94/62 99 02/05/19 15:40 98.0 F 104 18 122/66 94 02/05/19 11:04 98.0 F 88 16 110/73 94 Intake and Output 02/05/19 02/06/19 02/06/19 23:59 07:59 15:59 Intake Total 200 / 200 Balance 200 / 200 Intake: IV Fluids 200 / 200 Ofirmev 1,000 mg/100 ml 1,000 200 / 200 mg In 100 ml @ 400 mls/hr IVPB Q6H [facility] Rx#:[id number] Other: # Voids 1 1 - Labs CBC & BMP: 02/05/19 02:27 02/05/19 14:46 Labs: Abnormal lab results WBC 14.9 K/mcL (4.3-11.1) H 02/05/19 02:27 RBC 3.19 M/mcL (3.82-4.97) L 02/05/19 02:27 Hgb 10.0 g/dL (11.5-15.4) L 02/05/19 02:27 Hct 32.5 % (35.3-44.9) L 02/05/19 02:27 MCV 101.9 fL (83.0-100.0) H 02/05/19 02:27 MCHC 30.8 g/dL (31.6-35.5) L 02/05/19 02:27 Neutrophils # 13.6 K/mcL (1.6-8.9) H 02/05/19 02:27 Sodium 134 mEq/L (136-145) L 02/05/19 02:27 Potassium 5.9 mEq/L (3.5-5.1) H 02/05/19 06:53 Carbon Dioxide 20 mEq/L (23-29) L 02/05/19 02:27 BUN 41 mg/dL (6-20) H 02/05/19 02:27 Creatinine 1.48 mg/dL (0.60-1.20) H 02/05/19 02:27 Est GFR ( Amer) 44 (> 60) L 02/05/19 02:27 Est GFR (Non-Af Amer) 36 (> 60) L 02/05/19 02:27 BUN/Creatinine Ratio 28 (6-26) H 02/05/19 02:27 Glucose 173 mg/dL (70-105) H 02/05/19 02:27 POC Glucose 159 mg/dL (70-99) H 02/04/19 20:21 Calcium 8.1 mg/dL (8.6-10.3) L 02/04/19 19:46 AST 46 Units/L (13-39) H 02/05/19 02:27 ALT 80 Units/L (7-52) H 02/05/19 02:27 Alkaline Phosphatase 135 Units/L (34-104) H 02/05/19 02:27 Serum Total Protein 5.4 g/dL (6.4-8.9) L 02/04/19 19:46 Globulin 2.2 g/dL (2.4-3.5) L 02/05/19 02:27 Consult Discharge Plan - Plan Referrals: Yuliya Carranza MD [Primary Care Provider] -
[2019-02-06 09:54] LABS: Basophils % 0.3 %; Eosinophils # 0.1 K/mcL (0.0-0.6); Eosinophils % 1.2 %; Hematocrit 26.7 % (35.3-44.9); Immature Granulocytes % 0.5 % (0-4); Lymphocytes # 2.2 K/mcL (0.6-4.6); Lymphocytes % 21.3 %; Mean Corpuscular HGB Conc 30.7 g/dL (31.6-35.5); Mean Corpuscular Volume 104.3 fL (83.0-100.0); Mean Platelet Volume 10.1 fL (9.4-12.4); Monocytes # 0.9 K/mcL (0.0-1.3); Monocytes % 8.8 %; Neutrophils # 7.1 K/mcL (1.6-8.9); Platelet Count 265 K/mcL (140-400); Red Blood Count 2.56 M/mcL (3.82-4.97); Red Cell Distribution Width 13.7 % (11.5-14.5); Segmented Neutrophils % 67.9 %; White Blood Count 10.4 K/mcL (4.3-11.1)
[2019-02-06 09:55] LABS: Hemoglobin 8.2 g/dL (11.5-15.4)
[2019-02-06 10:10] LABS: Calcium 8.6 mg/dL (8.6-10.3); Potassium 4.1 mEq/L (3.5-5.1)
--- NOTE | 2019-02-06 14:55 | Internal Med Progress Note ---
Hospitalist Progress Note - Encounter Date of Encounter: 02/06/19 Time of Encounter: 14:52 - Subjective Interval History: Patient seen and examined today. She is in good spirits. She has no new complaints. No shortness of breath or chest pain. She is awaiting placement to [facility] after insurance approval. Her pain control. Is satisfactory. In formed her that her potassium today was normal. - Exam Vitals: Temp Pulse Resp BP Pulse Ox 98.4 F 88 16 144/72 95 02/06/19 13:12 02/06/19 13:12 02/06/19 13:12 02/06/19 13:12 02/06/19 13:12 Exam: - Head Head exam: Present: atraumatic - Eye Eye exam: Present: PERRL, conjuntiva pink, sclera anicteric Pupils: Present: normal accommodation, PERRL - ENT ENT exam: Present: normal exam - Neck Neck exam general surgery: Present: normal inspection - Respiratory Respiratory exam: Present: CTAB - Cardiovascular Cardiovascular exam IM: Present: RRR, +S1, +S2 - GI/Abdominal GI/Abdominal exam IM: Benign - Additional comments: exam deferred. - Extremities Exam Extremities exam IM: Present: 1+ pedal edema (Non-pitting), R knee surgery site healing well, R LE normal NV. - Back Exam Back exam: Present: normal inspection - Neurological Exam Neurological exam: Present: alert, CN II-XII intact, oriented X3, no focal deficits, strengths equal and symetr throughout - Psychiatric Psychiatric exam: Present: normal affect, normal mood - Skin Skin exam IM: Present: dry, intact - Assessment and Plan (1) Status post revision of total replacement of right knee Current Visit: Yes Status: Acute Assessment and Plan: Acute status post revision of total replacement of right knee. Patient underwent right revision robotic-assisted total knee replacement yesterday. Awaiting rehabilitation placement. (2) Drop in hemoglobin Current Visit: Yes Status: Acute Assessment and plan: Acute drop in Hgb. Yesterday 10.6 at 14:49 and 9.2 at 19:46. Estimated blood loss during procedure 200 cc. Type and screen ordered. Monitor f/u labs. Today there is further drop in hemoglobin. We will repeat one more value decide if transfusion is needed. Consider Venofer infusion. (3) Leukocytosis Current Visit: Yes Status: Acute Assessment and plan: Resolved. This is probably from the stress of the fracture. Qualifiers: Leukocytosis type: other Qualified Code(s): D72.828 - Other elevated white blood cell count (4) Hyponatremia Current Visit: Yes Status: Acute Assessment and plan: Resolved. Continue to monitor. This could be from LUNA inhibitor use. (5) Hyperkalemia Current Visit: Yes Status: Acute Assessment and plan: Resolved. This could be from LUNA inhibitor use. (6) RAMON (acute kidney injury) Current Visit: Yes Status: Acute Assessment and plan: Resolved. Could be LUNA inhibitor effect. Monitor f/u labs and I&O. Naproxen on hold. Will avoid other nephrotoxins. (7) Elevated liver enzymes Current Visit: Yes Status: Acute Assessment and plan: Repeat liver function test today (8) Hypocalcemia Current Visit: Yes Status: Acute Assessment and plan: Resolved. Continue to monitor as needed. (9) HTN (hypertension) Current Visit: Yes Status: Chronic Assessment and plan: Hx of chronic HTN. Monitor pt. and VS. Patient is currently hypotensive, so holding HTN medications for now. If pt. becomes hypertensive, will continue patient's spironolactone and diltiazem. The cerebral held due to hyperkalemia and acute renal injury. Qualifiers: Hypertension type: essential hypertension Qualified Code(s): I10 - Essential (primary) hypertension (10) COPD (chronic obstructive pulmonary disease) Current Visit: Yes Status: Chronic Assessment and plan: Hx of chronic COPD. Stable. Monitor. Supplemental O2 with titration and SPO2 monitoring. Qualifiers: COPD type: unspecified COPD Qualified Code(s): J44.9 - Chronic obstructive pulmonary disease, unspecified (11) GERD (gastroesophageal reflux disease) Current Visit: Yes Status: Chronic Assessment and plan: Hx of chronic GERD. Continue pts. Prilosec. 4 mg IVP Zofran every 8 hour when necessary for nausea and vomiting. Qualifiers: Esophagitis presence: esophagitis presence not specified Qualified Code(s): K21.9 - Gastro-esophageal reflux disease without esophagitis (12) Migraines Current Visit: Yes Status: Chronic Assessment and plan: Hx of chronic migraines. Continue pts. Imitrex and monitor closely. Qualifiers: Migraine type: with aura Status migrainosus presence: with status migrainosus Intractability: intractable Qualified Code(s): G43.111 - Migraine with aura, intractable, with status migrainosus (13) ZELDA (obstructive sleep apnea) Current Visit: Yes Status: Chronic Assessment and plan: Hx of chronic ZELDA. Pt. does not currently use BiPAP/CPAP. Supplemental O2 with titration and SPO2 monitoring. (14) Obesity, morbid, BMI 40.0-49.9 Current Visit: Yes Status: Chronic Assessment and plan: Hx of chronic morbid obesity. Encourage lifestyle modifications and dietary changes. (15) DVT prophylaxis Current Visit: Yes Status: Acute Assessment and plan: Bilateral foot pumps for DVT prophylaxis. - Summary of Assessment and Plan Summary of Assessment and Plan: 1) Status post revision of total replacement of right knee Current Visit: Yes Status: Acute Assessment and plan: Acute status post revision of total replacement of right knee. Patient underwent right revision robotic-assisted total knee replacement today. Became hypotensive post-procedure. Abnormal labs needed addressed as well. Consult to Hospitalist placed for medical management. Hgb 9.2, potassium 6.8, creatinine 2.11, GFR 24, Calcium 8.1, AST 54, ALT 70. On exam, pt. is sleepy but answers questions a ppropriately when awake. Post IV fluid bolus, BP has been >100 systolically. HR 83 at time of exam. Patient reports back pain and pain in right knee. D/t continued hypotension, opioid pain medications held for now. Nurse instructed to hold HTN medications for now as well. Monitoring f/u labs for improvement in above lab values. Pt. is high risk for further morbidity and complications d/t current status post revision of total replacement of right knee, current hypotension, current hyperkalemia, current hyponatremia, current a I current elevated liver enzymes, drop in Hgb, current leukocytosis, and comorbidities/risk factors. Inpatient. (2) Drop in hemoglobin Current Visit: Yes Status: Acute Assessment and plan: Acute drop in Hgb. 10.6 at 14:49 and 9.2 at 19:46. Estimated blood loss during procedure 200 cc. Type and screen ordered. Monitor f/u labs. (3) Leukocytosis Current Visit: Yes Status: Acute Assessment and plan: Acute leukocytosis w/WBC of 11.5. Likely reactive. Pt. received IVPB clindamycin pre and post-procedure. No identifiable infection source. Will monitor a.m. labs for improvement. Pt. afebrile and asymptomatic. Qualifiers: Leukocytosis type: other Qualified Code(s): D72.828 - Other elevated white blood cell count (4) Hyponatremia Current Visit: Yes Status: Acute Assessment and plan: Acute hyponatremia w/sodium of 131. Pt. received 1L 0.9 bolus for hypotension and is receiving 0.9 maintenance fluids at 75/hr. Continuous cardiac telemetry. Monitor f/u labs for improvement. (5) Hyperkalemia Current Visit: Yes Status: Acute Assessment and plan: Acute hyperkalemia w/potassium of 6.8. Recheck at 22:20 after IV fluid bolus was 6.7. 15 gm PO kayexalate ordered and administered. F/u K level at 02:00. Will administer additional dosing of kayexalate if warranted and recheck K at 05:00. Continuous cardiac telemetry. EKG shows sinus rhythm with possible right ventricular conduction delay and minimal ST depressions. Monitor closely. (6) RAMON (acute kidney injury) Current Visit: Yes Status: Acute Assessment and plan: Acute kidney injury. Pt. denies hx of CKD. Creatinine 2.11 and GFR 24 post- surgery. Pt. received 1L 0.9 IV fluid bolus for hypotension and is receiving 0.9 IV maintenance fluids at 75/hr. Monitor f/u labs and I&O. Naproxen on hold. Will avoid other nephrotoxins. (7) Elevated liver enzymes Current Visit: Yes Status: Acute Assessment and plan: Acutely elevated liver enzymes. AST 54 and ALT 70. No hx of liver disease or alcohol abuse. Will avoid acetaminophen at this time. Repeat hepatic panel in a.m. labs to assess for improvement after IV fluid resuscitation. (8) Hypocalcemia Current Visit: Yes Status: Acute Assessment and plan: Acute hypocalcemia w/calcium of 8.1. PO calcium carbonate ordered GABY. Monitor f/u labs. (9) HTN (hypertension) Current Visit: Yes Status: Chronic Assessment and plan: Hx of chronic HTN. Monitor pt. and VS. Patient is currently hypotensive, so holding HTN medications for now. If pt. becomes hypertensive, will continue patient's spironolactone, lisinopril, and diltiazem. Qualifiers: Hypertension type: essential hypertension Qualified Code(s): I10 - Essential (primary) hypertension (10) COPD (chronic obstructive pulmonary disease) Current Visit: Yes Status: Chronic Assessment and plan: Hx of chronic COPD. Stable. Monitor. Supplemental O2 with titration and SPO2 monitoring. Qualifiers: COPD type: unspecified COPD Qualified Code(s): J44.9 - Chronic obstructive pulmonary disease, unspecified (11) GERD (gastroesophageal reflux disease) Current Visit: Yes Status: Chronic Assessment and plan: Hx of chronic GERD. Continue pts. Prilosec. 4 mg IVP Zofran every 8 hour when necessary for nausea and vomiting. Qualifiers: Esophagitis presence: esophagitis presence not specified Qualified Code(s): K21.9 - Gastro-esophageal reflux disease without esophagitis (12) Migraines Current Visit: Yes Status: Chronic Assessment and plan: Hx of chronic migraines. Continue pts. Imitrex and monitor closely. Qualifiers: Migraine type: with aura Status migrainosus presence: with status migrainosus Intractability: intractable Qualified Code(s): G43.111 - Migraine with aura, intractable, with status migrainosus (13) ZELDA (obstructive sleep apnea) Current Visit: Yes Status: Chronic Assessment and plan: Hx of chronic ZELDA. Pt. does not currently use BiPAP/CPAP. Supplemental O2 with titration and SPO2 monitoring. (14) Obesity, morbid, BMI 40.0-49.9 Current Visit: Yes Status: Chronic Assessment and plan: Hx of chronic morbid obesity. Encourage lifestyle modifications and dietary changes. (15) DVT prophylaxis Current Visit: Yes Status: Acute Assessment and plan: Bilateral foot pumps for DVT prophylaxis. - Time Spent with Patient Total time spent is greater than 50% in coordination of care (as documented) at patient's floor/unit and/or counseling patient: Plan of Care Discussed with: patient Internal Medicine: Result - Labs CBC & Chem 7: 02/06/19 09:12 02/06/19 09:12 Labs: Short CBC 02/06/19 Range/Units 09:12 WBC 10.4 (4.3-11.1) K/mcL Hgb 8.2 L D (11.5-15.4) g/dL Hct 26.7 L (35.3-44.9) % Plt Count 265 (140-400) K/mcL Neutrophils # 7.1 (1.6-8.9) K/mcL BMP 02/05/19 02/06/19 14:46 09:12 Sodium 136 Potassium 4.5 4.1 Chloride 102 Carbon Dioxide 23 BUN 37 H Creatinine 1.18 Glucose 138 H Calcium 8.6 Consult Discharge Plan - Plan Referrals: Yuliya Carranza MD [Primary Care Provider] -
[2019-02-06 15:46] LABS: Basophils % 0.3 %; Eosinophils # 0.2 K/mcL (0.0-0.6); Eosinophils % 1.8 %; Hematocrit 24.4 % (35.3-44.9); Hemoglobin 7.7 g/dL (11.5-15.4); Immature Granulocytes % 0.9 % (0-4); Immature Platelets 2.2 % (1.1-6.1); Lymphocytes # 2.4 K/mcL (0.6-4.6); Lymphocytes % 23.2 %; Mean Corpuscular HGB Conc 31.6 g/dL (31.6-35.5); Mean Corpuscular Hemoglobin 32.2 pg (28.0-33.3); Mean Corpuscular Volume 102.1 fL (83.0-100.0); Mean Platelet Volume 10.1 fL (9.4-12.4); Monocytes # 0.9 K/mcL (0.0-1.3); Neutrophils # 6.7 K/mcL (1.6-8.9); Platelet Count 260 K/mcL (140-400); Red Blood Count 2.39 M/mcL (3.82-4.97); Red Cell Distribution Width 13.6 % (11.5-14.5); Segmented Neutrophils % 64.8 %; White Blood Count 10.3 K/mcL (4.3-11.1)
--- NOTE | 2019-02-06 16:43 | Event Note ---
Date of Encounter: 02/06/19 Time of Encounter: 12:50 PCR - POD#2 s/p right TKR revision 02/04/19 Patient seen at bedside, without complaints. A&O x 3 Afebrile, vital signs stable. Dressings c/d/i, no calf tenderness to palpation, good dorsiflexion of foot, sensation intact distally. Doppler yesterday negative for dvt Labs reviewed. H/H - 8.2/26.7 - asymptomatic at this time, continue to monitor Appreciate hospitalist on board for medical management of postoperative hypotension and labs. - has received kayexalate K improved from 6.7 to 5.9, Na improved to 134, kidney function improving compared to preop labs. liver enzymes elevated and agree with hospitalist recommendation to hold tylenol as well as NSAIDs. update 02/06 - Na/K are back to normal levels now but liver enzymes are still elevated Pain control: adequate, lidocaine patches help some Participating in PT. All questions and concerns addressed. Educated on use of incentive spirometer. Encouraged ambulation and proper hydration. Patient educated on post-operative restrictions and post-operative care. Assessment and plan: Continue with postoperative care Discharge plan: ECF when medically stable
[2019-02-07] MEDS: tiZANidine 4 MG TABLET PO SCH ×5 (00:42→23:35)
[2019-02-07] MEDS: *HR* OxyCODONE Immed Rel 5 MG TABLET PO PRN ×5 (00:42→22:24)
[2019-02-07] MEDS: Temazepam 15 MG CAPSULE PO PRN (00:43)
[2019-02-07] MEDS: Acetaminophen IV 1,000 MG/100 ML INFUS..BTL IVPB SCH ×4 (02:13→20:43)
[2019-02-07 02:37] LABS: Basophils % 0.3 %; Eosinophils # 0.4 K/mcL (0.0-0.6); Eosinophils % 4.5 %; Hematocrit 22.6 % (35.3-44.9); Hemoglobin 7.3 g/dL (11.5-15.4); Immature Granulocytes % 0.7 % (0-4); Lymphocytes # 2.6 K/mcL (0.6-4.6); Lymphocytes % 28.7 %; Mean Corpuscular HGB Conc 32.3 g/dL (31.6-35.5); Mean Corpuscular Hemoglobin 32.7 pg (28.0-33.3); Mean Corpuscular Volume 101.3 fL (83.0-100.0); Mean Platelet Volume 9.9 fL (9.4-12.4); Monocytes # 0.7 K/mcL (0.0-1.3); Neutrophils # 5.1 K/mcL (1.6-8.9); Platelet Count 229 K/mcL (140-400); Red Blood Count 2.23 M/mcL (3.82-4.97); Red Cell Distribution Width 13.3 % (11.5-14.5); Segmented Neutrophils % 57.8 %; White Blood Count 8.9 K/mcL (4.3-11.1)
[2019-02-07 02:50] LABS: Alanine Aminotransferase 33 Units/L (7-52); Albumin 3.7 g/dL (3.5-5.7); Albumin/Globulin Ratio 1.8 (1.1-2.2); Alkaline Phosphatase 86 Units/L (34-104); Aspartate Amino Transferase 13 Units/L (13-39); BUN/Creatinine Ratio 31 (6-26); Bilirubin,Indirect 0.3 mg/dL (0.0-1.2); Bilirubin,Total 0.3 mg/dL (0.3-1.0); Blood Urea Nitrogen 32 mg/dL (6-20); Calcium 8.7 mg/dL (8.6-10.3); Carbon Dioxide 25 mEq/L (23-29); Chloride 102 mEq/L (98-107); Globulin 2.1 g/dL (2.4-3.5); Glucose 122 mg/dL (70-105); Osmolality,Calculated 284 (280-300); Potassium 3.8 mEq/L (3.5-5.1); Sodium 133 mEq/L (136-145); Total Protein 5.8 g/dL (6.4-8.9); eGFR For African Americans > 60 (> 60); eGFR For Non-African Americans 55 (> 60)
[2019-02-07] MEDS: *HR* Enoxaparin 30 MG/0.3 ML SYRINGE SQ SCH ×2 (05:44→18:12)
[2019-02-07] MEDS: 0.9 % Sodium Chloride 1,000 ML IVC SCH (06:51)
[2019-02-07] MEDS: Multivit/Ca/Min/Fe/FA 1 TAB TABLET PO SCH (07:47)
[2019-02-07] MEDS: Celecoxib 200 MG CAPSULE PO SCH ×2 (07:47→20:42)
[2019-02-07] MEDS: Gabapentin 300 MG CAPSULE PO SCH ×3 (07:47→20:42)
[2019-02-07] MEDS: Ascorbic Acid 500 MG TABLET PO SCH ×2 (07:48→18:13)
--- NOTE | 2019-02-07 10:32 | Internal Med Progress Note ---
Hospitalist Progress Note - Encounter Date of Encounter: 02/07/19 Time of Encounter: 10:00 - Subjective Interval History: Patient seen and examined today. She denies any chest pain or increased shortness of breath. She does feel fatigued today. She does have a history of COPD. Discussed with her her drop in hemoglobin. The patient gives me a history of previous gastric ulcers and has some epigastric discomfort. She denies rectal bleeding or change in stool color. Hemoccult has been ordered. GI consult requested. - Exam Vitals: Temp Pulse Resp BP Pulse Ox 98.4 F 87 15 109/70 98 02/07/19 08:00 02/07/19 08:00 02/07/19 08:00 02/07/19 08:00 02/07/19 08:00 Exam: - Head Head exam: Present: atraumatic - Eye Eye exam: Present: PERRL, conjuntiva pink, sclera anicteric Pupils: Present: normal accommodation, PERRL - ENT ENT exam: Present: normal exam - Neck Neck exam general surgery: Present: normal inspection - Respiratory Respiratory exam: Present: CTAB - Cardiovascular Cardiovascular exam IM: Present: RRR, +S1, +S2 - GI/Abdominal GI/Abdominal exam IM: Nausea with palpation but no tenderness of the epigastrium. - Additional comments: exam deferred. - Extremities Exam Extremities exam IM: Present: 1+ pedal edema (Non-pitting), R knee surgery site healing well, R LE normal NV. - Back Exam Back exam: Present: normal inspection - Neurological Exam Neurological exam: Present: alert, CN II-XII intact, oriented X3, no focal deficits, strengths equal and symetr throughout - Psychiatric Psychiatric exam: Present: normal affect, normal mood - Skin Skin exam IM: Present: dry, intact - Assessment and Plan (1) Status post revision of total replacement of right knee Current Visit: Yes Status: Acute Assessment and Plan: Acute status post revision of total replacement of right knee. Patient underwent right revision robotic-assisted total knee replacement. Care per ortho. (2) Drop in hemoglobin Current Visit: Yes Status: Acute Assessment and plan: Transfuse 2 units PRBC. GI Consult. IV Pantoprazole. DC omeprazole PO. (3) Leukocytosis Current Visit: Yes Status: Resolved Assessment and plan: Cont to moitor. Qualifiers: Leukocytosis type: other Qualified Code(s): D72.828 - Other elevated white blood cell count (4) Hyponatremia Current Visit: Yes Status: Acute Assessment and plan: Slight. Continue to monitor. (5) Hyperkalemia Current Visit: Yes Status: Acute Assessment and plan: Resolved. Continue to monitor. This could be from LUNA inhibitor use. (6) RAMON (acute kidney injury) Current Visit: Yes Status: Acute Assessment and plan: Acute kidney injury. Pt. denies hx of CKD. Creatinine 2.11 and GFR 24 post- surgery. Pt. received 1L 0.9 IV fluid bolus for hypotension and is receiving 0.9 IV maintenance fluids at 75/hr. Monitor f/u labs and I&O. Naproxen on hold. Will avoid other nephrotoxins. (7) Elevated liver enzymes Current Visit: Yes Status: Acute Assessment and plan: Improved. (8) Hypocalcemia Current Visit: Yes Status: Resolved. Assessment and plan: Resolved. Monitor. (9) HTN (hypertension) Current Visit: Yes Status: Chronic Assessment and plan: Stable. Cont current tx. Qualifiers: Hypertension type: essential hypertension Qualified Code(s): I10 - Essential (primary) hypertension (10) COPD (chronic obstructive pulmonary disease) Current Visit: Yes Status: Chronic Assessment and plan: Hx of chronic COPD. Stable. Monitor. Supplemental O2 with titration and SPO2 monitoring. Qualifiers: COPD type: unspecified COPD Qualified Code(s): J44.9 - Chronic obstructive pulmonary disease, unspecified (11) GERD (gastroesophageal reflux disease) Current Visit: Yes Status: Chronic Assessment and plan: Hx of chronic GERD. Continue pts. Prilosec. 4 mg IVP Zofran every 8 hour when necessary for nausea and vomiting. Qualifiers: Esophagitis presence: esophagitis presence not specified Qualified Code(s): K21.9 - Gastro-esophageal reflux disease without esophagitis (12) Migraines Current Visit: Yes Status: Chronic Assessment and plan: Hx of chronic migraines. Continue pts. Imitrex and monitor closely. Qualifiers: Migraine type: with aura Status migrainosus presence: with status migrainosus Intractability: intractable Qualified Code(s): G43.111 - Migraine with aura, intractable, with status migrainosus (13) ZELDA (obstructive sleep apnea) Current Visit: Yes Status: Chronic Assessment and plan: Hx of chronic ZELDA. Pt. does not currently use BiPAP/CPAP. Supplemental O2 with titration and SPO2 monitoring. (14) Obesity, morbid, BMI 40.0-49.9 Current Visit: Yes Status: Chronic Assessment and plan: Hx of chronic morbid obesity. Encourage lifestyle modifications and dietary changes. (15) DVT prophylaxis Current Visit: Yes Status: Acute Assessment and plan: Bilateral foot pumps for DVT prophylaxis. - Time Spent with Patient Total time spent is greater than 50% in coordination of care (as documented) at patient's floor/unit and/or counseling patient: Internal Medicine: Result - Labs CBC & Chem 7: 02/07/19 02:05 02/07/19 02:05 Labs: Short CBC 02/06/19 02/07/19 Range/Units 15:35 02:05 WBC 10.3 8.9 (4.3-11.1) K/mcL Hgb 7.7 L 7.3 L (11.5-15.4) g/dL Hct 24.4 L 22.6 L (35.3-44.9) % Plt Count 260 229 (140-400) K/mcL Neutrophils # 6.7 5.1 (1.6-8.9) K/mcL BMP 02/07/19 02:05 Sodium 133 L Potassium 3.8 Chloride 102 Carbon Dioxide 25 BUN 32 H Creatinine 1.03 Glucose 122 H Calcium 8.7 Liver Function 02/07/19 Range/Units 02:05 Total Bilirubin 0.3 (0.3-1.0) mg/dL Direct Bilirubin 0.0 (0.0-0.2) mg/dL AST 13 (13-39) Units/L ALT 33 (7-52) Units/L Alkaline Phosphatase 86 (34-104) Units/L Albumin 3.7 (3.5-5.7) g/dL Consult Discharge Plan - Plan Referrals: Yuliya Carranza MD [Primary Care Provider] -
[2019-02-07 11:34] LABS: % Iron Saturation 23 % (15-50); Iron 106 mcg/dL (50-170); Transferrin 332 mg/dL (203-362)
--- NOTE | 2019-02-07 11:53 | Gastroenterology Consult Note ---
<CervantesGurwinder ornelas Saulo - Last Filed: 02/07/19 11:51> Date of Encounter: 02/07/19 Time of Encounter: 10:55 - Assessment and plan (1) Anemia Current Visit: Yes Status: Acute Assessment and plan: On admission Hgb 10.6 and today Hgb 7.3. Hgb 12.2 on 01/30/2019. Continue to monitor CBC and transfuse PRBC as needed. No hematemesis, coffee-ground emesis, melena, or hematochezia. Check iron profile, ferritin, vitamin B12, and folate. Plan for EGD and colonoscopy tomorrow. Clear liquid diet today, no red or purple. NPO at midnight. If unable tolerate NuLytely please use MiraLAX prep. If not clear by 6 AM, give 2 tap water enemas. Qualifiers: Anemia type: unspecified type Qualified Code(s): D64.9 - Anemia, unspecified (2) Status post revision of total replacement of right knee Current Visit: Yes Status: Acute - Time Spent With Patient Total time spent is greater than 50% in coordination of care (as documented) at patient's floor/unit and/or counseling patient: GI History of Present Illness - Data of Consult Patient: new to practice Consult date: 02/07/19 Requesting Physician: Caden Leon MD - Consult Narrative Reason for consult: Anemia History of present illness: Ms. Gonzales is a 58 year old female with PMHx of arthritis, CHF, COPD, GERD, HTN, migraines who presented to the hospital for revision of right total knee replace ment on 02/04/2019. We were consulted to evaluate her anemia. On admission Hgb 10.6 and today Hgb 7.3. She denies fever, chills, chest pain, abdominal pain, nausea, vomiting, hematemesis, coffee-ground emesis, melena, or hematochezia. She reports her reflux symptoms have not been well controlled with Prilosec. She reports history of gastric ulcer that was noted on EGD about 10 years ago. Procedures: EGD and colonoscopy 10 years ago at [facility], with gastric ulcer otherwise normal. NSAIDs: ASA 325 mg Anticoagulation: None Past Med Surg Social Fam HX - Past Medical History Medical history: arthritis, CHF, COPD, GERD, hypertension, migraine, thyroid disease, other Additional medical history: DDD, RA Psychiatric history: no psych history - Past Surgical History Surgical History: appendectomy, Additional surgical history: TONSILS. LEFT FOOT. BREAST LUMP RIGHT. ENDOMETR IOSIS. SKYE CARP. TUNNEL. SKYE KNEE SCOPE. TOTAL KNEE SKYE. GALL BLADDER. LUMBAR. RIGHT SHOULDER. LEFT FOOT ARCH. RIGHT FOOT ARCH. SPINAL CORD STIMULATOR - Social History Smoking Status: Never smoker Smokeless Tobacco Status: No Alcohol use: none Drug use: none - Family History Father Race: Family Member Ethnicity: Non- Living Status: Still Living Hx Family Cardiac Disorders: Yes (CAD) Hx Family Endocrine Disorder: Yes (DM) Mother Race: Family Member Ethnicity: Non- Living Status: Still Living Hx Family Cardiac Disorders: Yes (HTN) Hx Family Cancer: Yes (Breast (Double mastectomy)) Hx Family Endocrine Disorder: Yes (Thyroid disease) Brother Race: Family Member Ethnicity: Non- Living Status: Still Living Hx Family Medical Disorders: No Sister Race: Family Member Ethnicity: Non- Living Status: Still Living Hx Family Medical Disorders: No - Gastrointestinal Gastrointestinal: Present: as per HPI - Constitutional Constitutional: as per HPI - EENT Eyes: as per HPI Ears: Present: as per HPI Nose, mouth and throat: Present: as per HPI - Cardiovascular Cardiovascular ROS: Present: as per HPI - Respiratory Respiratory IM: Present: as per HPI - Genitourinary Genitourinary: Absent: change in color, Urinary frequency - Neurological ROS Neurological GI: Present: as per HPI - Hematologic/Lymphatic Hematologic/Lymphatic pediatric: Present: as per HPI - Musculoskeletal Musculoskeletal ROS GI: Present: as per HPI - Integumentary Integumentary GI: Present: as per HPI - Psychiatric ROS Psychiatric GI: Present: as per HPI - Endocrine Endocrine IM: Present: as per HPI - Constitutional Vitals: Temp Pulse Resp BP Pulse Ox 98.9 F 93 16 139/81 100 02/07/19 10:34 02/07/19 10:34 02/07/19 10:34 02/07/19 10:34 02/07/19 10:34 General appearance: Present: cooperative, A&O X 3, no acute distress, answers questions appropriately - Head Head exam: Present: atraumatic, normocephalic - Eye Eye exam: Present: normal appearance, sclera anicteric - ENT ENT exam: Present: mucous membranes moist - Neck Neck exam general surgery: Present: normal inspection, trachea midline - Respiratory Respiratory exam: Present: CTAB. Absent: rales, rhonchi - Cardiovascular Cardiovascular exam: Present: RRR, +S1, +S2 - GI/Abdominal GI/Abdominal exam: Present: soft, no peritoneal signs. Absent: distended, firm, guarding, tenderness - Rectal Rectal exam: Present: deferred - Extremities Exam Extremities exam: Present: warm Additional comments: Right knee incision C/D/I - Neurological Exam Neurological exam: Present: no focal deficits - Psychiatric Psychiatric exam: Present: normal affect, normal mood - Skin Skin exam: Present: dry, intact, normal color, warm Results - Labs CBC & Chem 7: 02/07/19 02:05 02/07/19 02:05 Labs: Last Result 02/07/19 02/07/19 02:05 10:49 Calcium 8.7 Iron 106 % Saturation 23 Transferrin 332 Entire Visit 02/07/19 02/07/19 02:05 02:05 Hgb 7.3 L Hct 22.6 L Total Bilirubin 0.3 AST 13 ALT 33 Consult Discharge Plan - Plan Referrals: Yuliya Carranza MD [Primary Care Provider] - <Cintia Jaimes - Last Filed: 02/07/19 18:24> Date of Encounter: 02/07/19 Time of Encounter: 17:00 - Time Spent With Patient Total time spent is greater than 50% in coordination of care (as documented) at patient's floor/unit and/or counseling patient: GI History of Present Illness - Data of Consult Requesting Physician: Caden Leon MD - Consult Narrative History of present illness: Ms. Gonzales is a 58 year old female - Constitutional Vitals: Temp Pulse Resp BP Pulse Ox 98.7 F 88 14 126/72 99 02/07/19 15:54 02/07/19 15:54 02/07/19 12:35 02/07/19 15:54 02/07/19 15:54 Results - Labs CBC & Chem 7: 02/07/19 02:05 02/07/19 02:05 Labs: Last Result 02/07/19 02/07/19 02/07/19 10:49 10:49 10:49 Iron 106 % Saturation 23 Transferrin 332 Ferritin 36 Vitamin B12 260 Folate > 22.3 H Entire Visit 02/07/19 02/07/19 10:49 10:49 Ferritin 36 Folate > 22.3 H - Attending Attestation I have personally performed a face to face evaluation on this patient. I have reviewed and agree with the care plan. History and Exam by me shows: Patient seen denies any overt bleeding on examination alert and awake not in distress. Assessment: Patient with anemia recommendation EGD/colon: Tomorrow
[2019-02-07 12:07] LABS: Folate > 22.3 ng/mL (3.0-16.0); Vitamin B12 260 pg/mL (250-1100)
[2019-02-07] MEDS ORDERED: 0.9 % Sodium Chloride 250 ML ONE ×2 (12:12→18:29)
--- NOTE | 2019-02-07 12:17 | Orthopedics Progress Note ---
Date of Encounter: 02/07/19 Time of Encounter: 10:30 - Assessment and Plan (1) Status post revision of total replacement of right knee Current Visit: Yes Status: Acute (2) History of unicondylar arthroplasty of right knee Current Visit: Yes Status: Chronic (3) Arthritis of right knee Current Visit: Yes Status: Chronic (4) HTN (hypertension) Current Visit: Yes Status: Chronic Qualifiers: Hypertension type: unspecified Qualified Code(s): I10 - Essential (primary) hypertension (5) COPD (chronic obstructive pulmonary disease) Current Visit: Yes Status: Chronic Qualifiers: COPD type: unspecified COPD Qualified Code(s): J44.9 - Chronic obstructive pulmonary disease, unspecified (6) ZELDA (obstructive sleep apnea) Current Visit: Yes Status: Chronic (7) Obesity, morbid, BMI 40.0-49.9 Current Visit: Yes Status: Chronic (8) Thyroid disorder Current Visit: Yes Status: Chronic (9) GERD (gastroesophageal reflux disease) Current Visit: Yes Status: Chronic Qualifiers: Esophagitis presence: esophagitis presence not specified Qualified Code(s): K21.9 - Gastro-esophageal reflux disease without esophagitis (10) Migraines Current Visit: Yes Status: Chronic Qualifiers: Migraine type: with aura Status migrainosus presence: with status migrainosus Intractability: intractable Qualified Code(s): G43.111 - Migraine with aura, intractable, with status migrainosus Subjective Principal diagnosis: s/p right TKR revision 02/04/19 Interval history: PCR - POD#3 s/p right TKR revision 02/04/19 Patient seen at bedside. A&O x 3. She is feeling more nausea today and abdominal cramping. no concerns related to the hip or therapy. Afebrile, vital signs stable. Dressings c/d/i, no calf tenderness to palpation, good dorsiflexion of foot, sensation intact distally. Doppler 02/05 negative for dvt Labs reviewed. H/H - 7.3/22.6 - hospitalist as recommended 2 unit RBC transfusion and GI workup for the acute anemia Appreciate hospitalist on board for medical management of postoperative hypoten pam and labs. - has received kayexalate K improved from 6.7 to 5.9, Na improved to 134, kidney function improving compared to preop labs. liver enzymes elevated and agree with hospitalist recommendation to hold tylenol as well as NSAIDs. update 02/06 - Na/K are back to normal levels now but liver enzymes are still elevated update 02/07 - liver enzymes WNL now and kidney function continues to improve Pain control: adequate, lidocaine patches help some Participating in PT. All questions and concerns addressed. Educated on use of incentive spirometer. Encouraged ambulation and proper hydration. Patient educated on post-operative restrictions and post-operative care. Assessment and plan: Continue with postoperative care Discharge plan: ECF when medically stable Objective Vital signs: Vital Signs Temp Pulse Resp BP Pulse Ox 02/07/19 10:34 98.9 F 93 16 139/81 100 02/07/19 08:00 98.4 F 87 15 109/70 98 02/07/19 04:15 98.8 F 91 22 137/81 100 02/06/19 23:22 98.1 F 92 20 126/74 97 02/06/19 20:00 100 02/06/19 19:51 97.9 F 103 20 125/80 97 02/06/19 15:15 98.4 F 100 16 152/80 100 02/06/19 13:12 98.4 F 88 16 144/72 95 Intake and Output 02/06/19 02/07/19 02/07/19 23:59 07:59 15:59 Intake Total 950 / 1600 250 / 350 100 / 350 Output Total 0 / 0 Balance 950 / 1600 250 / 350 100 / 350 Intake: IV Fluids 100 / 300 100 / 200 100 / 200 Ofirmev 1,000 mg/100 ml 1,000 100 / 300 100 / 200 100 / 200 mg In 100 ml @ 400 mls/hr IVPB Q6H GABY Rx#:[id number] Oral 850 / 1300 150 / 150 Output: Urine 0 / 0 Other: Meal Breakfast Percent of Meal Consumed 5% # Voids 1 1 # Bowel Movements 1 Weight 118 kg Patient Weight 02/07/19 23:59 Weight 118 kg - Labs CBC & BMP: 02/07/19 02:05 02/07/19 02:05 Labs: Abnormal lab results WBC 14.9 K/mcL (4.3-11.1) H 02/05/19 02:27 RBC 2.23 M/mcL (3.82-4.97) L 02/07/19 02:05 Hgb 7.3 g/dL (11.5-15.4) L 02/07/19 02:05 Hct 22.6 % (35.3-44.9) L 02/07/19 02:05 MCV 101.3 fL (83.0-100.0) H 02/07/19 02:05 MCHC 30.7 g/dL (31.6-35.5) L 02/06/19 09:12 Neutrophils # 13.6 K/mcL (1.6-8.9) H 02/05/19 02:27 Sodium 133 mEq/L (136-145) L 02/07/19 02:05 Potassium 5.9 mEq/L (3.5-5.1) H 02/05/19 06:53 Carbon Dioxide 20 mEq/L (23-29) L 02/05/19 02:27 BUN 32 mg/dL (6-20) H 02/07/19 02:05 Creatinine 1.48 mg/dL (0.60-1.20) H 02/05/19 02:27 Est GFR ( Amer) 57 (> 60) L 02/06/19 09:12 Est GFR (Non-Af Amer) 55 (> 60) L 02/07/19 02:05 BUN/Creatinine Ratio 31 (6-26) H 02/07/19 02:05 Glucose 122 mg/dL (70-105) H 02/07/19 02:05 POC Glucose 159 mg/dL (70-99) H 02/04/19 20:21 Calcium 8.1 mg/dL (8.6-10.3) L 02/04/19 19:46 AST 46 Units/L (13-39) H 02/05/19 02:27 ALT 80 Units/L (7-52) H 02/05/19 02:27 Alkaline Phosphatase 135 Units/L (34-104) H 02/05/19 02:27 Serum Total Protein 5.8 g/dL (6.4-8.9) L 02/07/19 02:05 Globulin 2.1 g/dL (2.4-3.5) L 02/07/19 02:05 Folate > 22.3 ng/mL (3.0-16.0) H 02/07/19 10:49 Crossmatch See Detail 02/05/19 02:27 Consult Discharge Plan - Plan Referrals: Yuliya Carranza MD [Primary Care Provider] -
[2019-02-07] MEDS ORDERED: SODIUM CHLORIDE/NAHCO3/KCL/PEG 4,000 ML SOLN.RECON PO ONE (17:00)
[2019-02-07] MEDS: Pantoprazole 40 MG VIAL IVP SCH (18:13)
[2019-02-08] MEDS: Acetaminophen IV 1,000 MG/100 ML INFUS..BTL IVPB SCH ×3 (03:11→15:49)
[2019-02-08 03:32] LABS: Basophils # 0.1 K/mcL (0.0-0.2); Basophils % 0.5 %; Eosinophils # 0.6 K/mcL (0.0-0.6); Eosinophils % 6.2 %; Hematocrit 29.2 % (35.3-44.9); Immature Granulocytes % 1.5 % (0-4); Lymphocytes # 2.3 K/mcL (0.6-4.6); Lymphocytes % 24.6 %; Mean Corpuscular HGB Conc 32.5 g/dL (31.6-35.5); Mean Corpuscular Hemoglobin 31.8 pg (28.0-33.3); Mean Corpuscular Volume 97.7 fL (83.0-100.0); Mean Platelet Volume 9.9 fL (9.4-12.4); Monocytes # 0.7 K/mcL (0.0-1.3); Monocytes % 7.8 %; Neutrophils # 5.7 K/mcL (1.6-8.9); Nucleated Red Blood Cells 1.6 /100 WBC (0); Platelet Count 259 K/mcL (140-400); Red Blood Count 2.99 M/mcL (3.82-4.97); Red Cell Distribution Width 14.9 % (11.5-14.5); Segmented Neutrophils % 59.4 %; White Blood Count 9.5 K/mcL (4.3-11.1)
[2019-02-08 03:33] LABS: Hemoglobin 9.5 g/dL (11.5-15.4)
[2019-02-08 03:51] LABS: BUN/Creatinine Ratio 17 (6-26); Blood Urea Nitrogen 17 mg/dL (6-20); Calcium 9.1 mg/dL (8.6-10.3); Carbon Dioxide 20 mEq/L (23-29); Chloride 99 mEq/L (98-107); Glucose 125 mg/dL (70-105); Osmolality,Calculated 281 (280-300); Potassium 3.8 mEq/L (3.5-5.1); Sodium 134 mEq/L (136-145); eGFR For African Americans > 60 (> 60); eGFR For Non-African Americans 56 (> 60)
[2019-02-08] MEDS: Pantoprazole 40 MG VIAL IVP SCH ×2 (05:00→17:06)
[2019-02-08] MEDS: tiZANidine 4 MG TABLET PO SCH ×2 (05:05→12:24)
[2019-02-08] MEDS: *HR* Enoxaparin 30 MG/0.3 ML SYRINGE SQ SCH ×2 (05:05→17:05)
[2019-02-08] MEDS ORDERED: *HR* Midazolam HCl 5 MG/5 ML VIAL IVP ONE ×2 (07:15→07:45)
[2019-02-08] MEDS ORDERED: *HR* FentaNYL (PF) 100 MCG/2 ML VIAL ONE (07:15)
[2019-02-08] MEDS ORDERED: Simethicone 40 MG/0.6 ML MLS IR ONE (07:45)
[2019-02-08] MEDS ORDERED: *HR* FentaNYL (PF) 100 MCG/2 ML VIAL IVP ONE (07:45)
--- NOTE | 2019-02-08 07:46 | Pre-Sedation Evaluation ---
Pre-sedation evaluation - Pre-sedation checklist Date of procedure: 02/04/19 Recent Vitals: Last Vital Signs Temp 98.6 F 02/08/19 06:48 Pulse 88 02/08/19 06:48 Resp 15 02/08/19 06:48 BP 109/53 02/08/19 06:48 Pulse Ox 99 02/08/19 06:48 ASA Classification *see protocol: CLASS III-Severe systemic disease Plan of Care: Pt appropriate candidate for procedure/moderate/conscious sedation, Risks/benefits of procedure/sedation discussed w/ patient/family
[2019-02-08] MEDS: Multivit/Ca/Min/Fe/FA 1 TAB TABLET PO SCH (10:20)
[2019-02-08] MEDS: *HR* OxyCODONE Immed Rel 5 MG TABLET PO PRN ×2 (10:20→15:50)
[2019-02-08] MEDS: Gabapentin 300 MG CAPSULE PO SCH ×2 (10:21→15:50)
[2019-02-08] MEDS: Celecoxib 200 MG CAPSULE PO SCH (10:21)
[2019-02-08] MEDS: Ascorbic Acid 500 MG TABLET PO SCH (10:25)
--- NOTE | 2019-02-08 12:40 | Internal Med Progress Note ---
Hospitalist Progress Note - Encounter Date of Encounter: 02/06/19 Time of Encounter: 12:40 - Subjective Interval History: Patient seen and examined today. She feels better after the blood transfusions yesterday. GI was consulted. She had a colonoscopy and EGD today. The EGD showed a small hiatal hernia and area suspicious of Hampton's esophagus. The colonoscopy was within normal limits. She will be discharged today. - Exam Vitals: Temp Pulse Resp BP Pulse Ox 98.3 F 85 17 137/85 95 02/08/19 08:48 02/08/19 08:48 02/08/19 08:48 02/08/19 08:48 02/08/19 08:48 Exam: - Head Head exam: Present: atraumatic - Eye Eye exam: Present: PERRL, conjuntiva pink, sclera anicteric Pupils: Present: normal accommodation, PERRL - ENT ENT exam: Present: normal exam - Neck Neck exam general surgery: Present: normal inspection - Respiratory Respiratory exam: Present: CTAB - Cardiovascular Cardiovascular exam IM: Present: RRR, +S1, +S2 - GI/Abdominal GI/Abdominal exam IM: Nausea with palpation but no tenderness of the epigastrium. - Additional comments: exam deferred. - Extremities Exam Extremities exam IM: Present: 1+ pedal edema (Non-pitting), R knee surgery site healing well, R LE normal NV. - Back Exam Back exam: Present: normal inspection - Neurological Exam Neurological exam: Present: alert, CN II-XII intact, oriented X3, no focal deficits, strengths equal and symetr throughout - Psychiatric Psychiatric exam: Present: normal affect, normal mood - Skin Skin exam IM: Present: dry, intact - Assessment and Plan (1) Status post revision of total replacement of right knee Status: Acute Assessment and Plan: (1) Status post revision of total replacement of right knee Current Visit: Yes Status: Acute Assessment and Plan: Acute status post revision of total replacement of right knee. Patient underwent right revision robotic-assisted total knee replacement. Care per ortho. (2) Drop in hemoglobin Current Visit: Yes Status: Acute Assessment and plan: Transfused 2 units PRBC. EGD and colonoscopy performed results as above. (3) Leukocytosis Current Visit: Yes Status: Resolved Assessment and plan: Patient will be discharged today. Qualifiers: Leukocytosis type: other Qualified Code(s): D72.828 - Other elevated white blood cell count (4) Hyponatremia Current Visit: Yes Status: Chronic Assessment and plan: This is borderline and of no clinical significance for now. Recommend discontinuing LUNA inhibitor. (5) Hyperkalemia Current Visit: Yes Status: Acute Assessment and plan: Resolved. Avoid future LUNA inhibitor use. (6) RAMON (acute kidney injury) Current Visit: Yes Status: Resolved. Assessment and plan: Acute kidney injury. This is resolved. This is likely from LUNA inhibitor and superadded dehydration. Avoid LUNA inhibitor use in future if possible. (7) Elevated liver enzymes Current Visit: Yes Status: Acute Assessment and plan: Improved. No further action. (8) Hypocalcemia Current Visit: Yes Status: Resolved. Assessment and plan: Resolved. Monitor. (9) HTN (hypertension) Current Visit: Yes Status: Chronic Assessment and plan: Stable. Cont current tx. Qualifiers: Hypertension type: essential hypertension Qualified Code(s): I10 - Essential (primary) hypertension (10) COPD (chronic obstructive pulmonary disease) Current Visit: Yes Status: Chronic Assessment and plan: Hx of chronic COPD. Stable. Continue current treatment. Qualifiers: COPD type: unspecified COPD Qualified Code(s): J44.9 - Chronic obstructive pulmonary disease, unspecified (11) GERD (gastroesophageal reflux disease) Current Visit: Yes Status: Chronic Assessment and plan: Hx of chronic GERD. Continue PPI. Qualifiers: Esophagitis presence: esophagitis presence not specified Qualified Code(s): K21.9 - Gastro-esophageal reflux disease without esophagitis (12) Migraines Current Visit: Yes Status: Chronic Assessment and plan: Hx of chronic migraines. Continue pts. Imitrex as outpatient. Qualifiers: Migraine type: with aura Status migrainosus presence: with status migrainosus Intractability: intractable Qualified Code(s): G43.111 - Migraine with aura, intractable, with status migrainosus (13) ZELDA (obstructive sleep apnea) Current Visit: Yes Status: Chronic Assessment and plan: Hx of chronic ZELDA. Continue current treatment. (14) Obesity, morbid, BMI 40.0-49.9 Current Visit: Yes Status: Chronic Assessment and plan: Hx of chronic morbid obesity. Encourage lifestyle modifications and dietary changes. Patient is being discharged today. - Time Spent with Patient Total time spent is greater than 50% in coordination of care (as documented) at patient's floor/unit and/or counseling patient: Internal Medicine: Result - Labs CBC & Chem 7: 02/08/19 03:15 02/08/19 03:15 Labs: Short CBC 02/08/19 Range/Units 03:15 WBC 9.5 (4.3-11.1) K/mcL Hgb 9.5 L D (11.5-15.4) g/dL Hct 29.2 L (35.3-44.9) % Plt Count 259 (140-400) K/mcL Neutrophils # 5.7 (1.6-8.9) K/mcL BMP 02/08/19 03:15 Sodium 134 L Potassium 3.8 Chloride 99 Carbon Dioxide 20 L BUN 17 Creatinine 1.01 Glucose 125 H Calcium 9.1 - VTE Documentation of Mechanical Device: Venous foot pump, device Consult Discharge Plan - Plan Additional Instructions: Discharge Instructions: Total Knee Replacement Please call [facility] ([phone]), your Primary Care Physician, or report to the Emergency Room if you have any of the following symptoms: Nausea, vomiting, fever greater that 101.5, swelling, chest pain, shortness of breath, increased pain/redness/drainage/odor for your incision site, numbness/tingling, or any other concerning symptoms. ACTIVITY:Weight-bearing as tolerated. You may progress off support (crutches or walker) as tolerated. Incentive Spirometer 10 times an hour. MEDICATIONS: Upon discharge resume your home medications. Take all the medications as prescribed. Take a stool softener if taking narcotic pain medications. Stool softeners are only effective if you drink enough fluids. Drink 6-8 glass of water or fluids a day, unless this is not allowed for another health problem. Despite using stool softeners, if you haven't had a bowel movement in 3 days, please switch to a gentle laxative. Gentle laxatives are sold over the counter. You should have a bowel movement within 24 hours, if not call the office. You will be discharged from the hospital with a prescription for pain medication. You are encouraged to decrease the use of narcotic pain medication as tolerated. Should you require a refill, please call the office. [facility] prescribes narcotic pain medication for only 4-6 weeks after surgery. If you require pain medication beyond this time period, you may be referred to your Primary Care Physician or to the Pain Clinic for further evaluation. Plan ahead for refills on pain medication as many narcotics either need to be picked up at the office or mailed. It is best to call 48-72 hours in advance of needing a prescription refill so you don't run out of medication. To help control the post-operative pain, you may take NSAIDs (Aleve,Advil, Motrin, Ibuprofen, Naprosyn) or Tylenol as prescribed on the bottle in addition to the pain medication. ANTICOAGULATION (blood thinners): Continue your Aspirin, Lovenox or Coumadin as prescribed to help prevent a blood clot in the leg or in the lungs. As long as your incision remains dry and you tolerate the NSAIDs (Aleve, Advil, Motrin, ibuprofen, naprosyn), it is OK to use the NSAIDS while you are taking your anticoagulation medication. Should your incision start to drain, stop the NSAID and contact our office. Common symptoms of blood clot in the legs include: localized pain, swelling, calf tenderness, redness or discoloration of the skin. Blood clot in the lung symptoms include: shortness of breath, rapid pulse, sweating, and chest pain that worsens with deep breathing, coughing up blood, lightheadedness, feelings of anxiety. If you experience any of these symptoms notify your physician immediately, go to the emergency room, or if having trouble breathing, call 911. WOUND CARE: Leave the dressing on for 7 to 10days. You may change the dressing if it becomes saturated greater than 50%. Do not get the dressing wet at anytime. Wash your hands with antibacterial soap, rinse and dry prior to any wound care. If you have swetha the visiting nurse or rehab facility can remove the stapes 10-14 days after surgery and place steri-strips across the wound. Leave the steri-strips in place until they fall off on their won. You may let water from the shower run on top of the steri-strips. If you do not have a visiting nurse or rehab facility, you will need to return to the office at 10-14 days for the swetha to be removed. If you have itching or redness around the dressing call the office. FOLLOW-UP: Please follow up with your surgeon in the orthopedic clinic in 4 weeks from the day of surgery. If you have swetha that need to be removed, you will need to come back to the office in 10-14 days from the day of surgery. Referrals: Ela Trivedi PAC [Physician [employer]] - 02/14/19 9:30 am Yuliya Carranza MD [Primary Care Provider] -
[2019-02-08 15:43] VITALS: BP 117/73
== END 2019-02-08 17:45 | DRG 467 ==
LOC: SAMDAY 10:23 → 3NENU 15:55
PROVIDERS: ADMIT Orthopaedic Surgery; ATTEND Orthopaedic Surgery

== ENCOUNTER 2021-08-28 17:08 | Observation (INO) ==
[2021-08-28] MEDS ORDERED: Morphine Sulfate 2 MG/ML SYRINGE IVP ONE (17:49)
[2021-08-28] MEDS ORDERED: *HR* HYDROmorphone 2 MG/ML SYRINGE IVP ONE (18:16)
[2021-08-28 18:36] LABS: Basophils % 0.2 %; Bilirubin,Urine Negative (Negative); Blood,Urine Negative (Negative); Clarity,Urine Clear (Clear); Color,Urine Colorless (Yellow); Glucose,Urine (UA) Normal (Normal); Hematocrit 35.2 % (35.3-44.9); Hemoglobin 11.4 g/dL (11.5-15.4); Immature Granulocytes % 0.7 % (0-4); Ketones,Urine Negative (Negative); Leukocyte Esterase,Urine Small (Negative); Lymphocytes # 1.3 K/mcL (0.6-4.6); Lymphocytes % 14.7 %; Mean Corpuscular HGB Conc 32.4 g/dL (31.6-35.5); Mean Corpuscular Hemoglobin 28.9 pg (28.0-33.3); Mean Corpuscular Volume 89.3 fL (83.0-100.0); Mean Platelet Volume 9.8 fL (9.4-12.4); Monocytes # 0.7 K/mcL (0.0-1.3); Monocytes % 7.7 %; Mucus,Urine Few per lpf (None-Few); Neutrophils # 6.9 K/mcL (1.6-8.9); Nitrite,Urine Negative (Negative); PH,Urine 7.5 pH Units (5.0-8.0); Platelet Count 344 K/mcL (140-400); Protein,Urine Negative (Neg-Trace); Red Blood Count 3.94 M/mcL (3.82-4.97); Red Cell Distribution Width 14.6 % (11.5-14.5); Segmented Neutrophils % 76.7 %; Specific Gravity,Urine 1.007 (1.010-1.025); Squamous Epithelial Cell,Urine Few per hpf (None-Few); Urobilinogen,Urine Normal (Normal); White Blood Count 9.1 K/mcL (4.3-11.1)
[2021-08-28 18:46] LABS: Prothrombin Time 11.1 Seconds (9.4-12.1)
[2021-08-28 18:48] LABS: Activated Partial Thrombo Time 28.3 Seconds (26.0-36.0)
[2021-08-28 18:58] LABS: BUN/Creatinine Ratio 23 (6-26); Blood Urea Nitrogen 21 mg/dL (8-23); Calcium 9.2 mg/dL (8.6-10.3); Carbon Dioxide 27 mEq/L (23-29); Chloride 101 mEq/L (98-107); Glucose 120 mg/dL (70-105); Osmolality,Calculated 292 (280-300); Potassium 3.6 mEq/L (3.5-5.1); Sodium 139 mEq/L (136-145); eGFR For African Americans > 60 (> 60); eGFR For Non-African Americans > 60 (> 60)
[2021-08-28 18:59] LABS: Troponin I < 0.03 ng/mL (< 0.04)
[2021-08-28] MEDS ORDERED: Isovue-370 500 ML BOTTLE IVP ONE (19:24)
[2021-08-28 20:08] LABS: Creatine Kinase 130 Units/L (30-223)
[2021-08-28] MEDS ORDERED: *HR* HYDROcodone/Acet 5/325 mg TABLET PO ONE (20:50)
[2021-08-28] MEDS ORDERED: Ondansetron 4 MG/2 ML VIAL IVP PRN (21:47)
[2021-08-28] MEDS ORDERED: Naloxone 0.4 MG/ML INJ IVP PRN (21:47)
[2021-08-28] MEDS ORDERED: Perflutren Lipid Microsphere 1.3 ML in 0.9 % Sodium Chloride 8.7 ML IVP PRN (21:49)
[2021-08-29] MEDS: Acetaminophen 325 MG TABLET PO PRN ×2 (01:48→11:30)
[2021-08-29 03:10] LABS: Basophils % 0.3 %; Eosinophils % 0.6 %; Hematocrit 33.7 % (35.3-44.9); Hemoglobin 10.8 g/dL (11.5-15.4); Immature Granulocytes % 0.4 % (0-4); Lymphocytes # 1.7 K/mcL (0.6-4.6); Lymphocytes % 23.7 %; Mean Corpuscular Hemoglobin 29.3 pg (28.0-33.3); Mean Corpuscular Volume 91.3 fL (83.0-100.0); Monocytes # 0.9 K/mcL (0.0-1.3); Monocytes % 12.9 %; Neutrophils # 4.4 K/mcL (1.6-8.9); Platelet Count 286 K/mcL (140-400); Red Blood Count 3.69 M/mcL (3.82-4.97); Red Cell Distribution Width 14.7 % (11.5-14.5); Segmented Neutrophils % 62.1 %; White Blood Count 7.1 K/mcL (4.3-11.1)
[2021-08-29 03:29] LABS: Albumin 3.7 g/dL (3.5-5.7); Albumin/Globulin Ratio 1.7 (1.1-2.2); Bilirubin,Direct 0.1 mg/dL (0.0-0.2); Bilirubin,Indirect 0.2 mg/dL (0.0-1.0); Bilirubin,Total 0.3 mg/dL (0.3-1.0); Globulin 2.2 g/dL (2.4-3.5); Total Protein 5.9 g/dL (6.4-8.9)
[2021-08-29 03:32] LABS: BUN/Creatinine Ratio 24 (6-26); Blood Urea Nitrogen 19 mg/dL (8-23); Calcium 8.7 mg/dL (8.6-10.3); Carbon Dioxide 28 mEq/L (23-29); Chloride 104 mEq/L (98-107); Glucose 111 mg/dL (70-105); Magnesium 2.1 mg/dL (1.6-2.6); Osmolality,Calculated 293 (280-300); Potassium 3.2 mEq/L (3.5-5.1); Sodium 140 mEq/L (136-145); eGFR For African Americans > 60 (> 60); eGFR For Non-African Americans > 60 (> 60)
[2021-08-29 03:44] LABS: Thyroid Stimulating Hormone 0.094 mcIU/mL (0.340-5.600)
[2021-08-29] MEDS ORDERED: Furosemide 40 MG/4 ML VIAL IVP SCH (09:00)
[2021-08-29] MEDS ORDERED: DilTIAZem CD (24hr) 120 MG CAP.ER.24H PO SCH (09:00)
[2021-08-29] MEDS ORDERED: Isovue-370 500 ML BOTTLE IVP ONE (09:37)
[2021-08-29] MEDS: Aspirin Enteric Coated 325 MG Tablet PO SCH (12:21)
[2021-08-29] MEDS: tiZANidine 4 MG TABLET PO SCH ×2 (14:07→21:25)
[2021-08-29] MEDS: Gabapentin 300 MG CAPSULE PO SCH ×2 (14:07→21:26)
[2021-08-29] MEDS: estradioL 0.5 MG TABLET PO SCH (14:07)
[2021-08-30 05:14] LABS: Hematocrit 37.3 % (35.3-44.9); Hemoglobin 11.6 g/dL (11.5-15.4); Mean Corpuscular HGB Conc 31.1 g/dL (31.6-35.5); Mean Corpuscular Volume 90.1 fL (83.0-100.0); Mean Platelet Volume 9.3 fL (9.4-12.4); Platelet Count 243 K/mcL (140-400); Red Blood Count 4.14 M/mcL (3.82-4.97); Red Cell Distribution Width 14.6 % (11.5-14.5); White Blood Count 6.2 K/mcL (4.3-11.1)
[2021-08-30 05:36] LABS: BUN/Creatinine Ratio 21 (6-26); Blood Urea Nitrogen 16 mg/dL (8-23); Calcium 8.9 mg/dL (8.6-10.3); Carbon Dioxide 30 mEq/L (23-29); Chloride 102 mEq/L (98-107); Glucose 105 mg/dL (70-105); Osmolality,Calculated 290 (280-300); Potassium 3.2 mEq/L (3.5-5.1); Sodium 139 mEq/L (136-145); eGFR For African Americans > 60 (> 60); eGFR For Non-African Americans > 60 (> 60)
[2021-08-30] MEDS ORDERED: SUMAtriptan succinate 50 MG TABLET PO PRN (07:57)
[2021-08-30] MEDS: Aspirin Enteric Coated 325 MG Tablet PO SCH (08:54)
[2021-08-30] MEDS: Gabapentin 300 MG CAPSULE PO SCH ×3 (08:54→20:49)
[2021-08-30] MEDS: estradioL 0.5 MG TABLET PO SCH (08:54)
[2021-08-30] MEDS: Furosemide 40 MG/4 ML VIAL IVP SCH (08:55)
[2021-08-30] MEDS: predniSONE 20 MG TABLET PO SCH ×2 (08:55→17:17)
[2021-08-30] MEDS: tiZANidine 4 MG TABLET PO SCH ×3 (08:55→20:50)
[2021-08-30] MEDS: Benzonatate 100 MG CAPSULE PO SCH ×3 (08:55→20:50)
[2021-08-30] MEDS ORDERED: TIZANIDINE HCL 4 MG PO SCH (09:00)
[2021-08-31] MEDS: estradioL 0.5 MG TABLET PO SCH (08:10)
[2021-08-31] MEDS: predniSONE 20 MG TABLET PO SCH ×2 (08:11→16:20)
[2021-08-31] MEDS: Benzonatate 100 MG CAPSULE PO SCH ×2 (08:11→15:01)
[2021-08-31] MEDS: tiZANidine 4 MG TABLET PO SCH ×2 (08:11→15:01)
[2021-08-31] MEDS: Gabapentin 300 MG CAPSULE PO SCH ×2 (08:11→15:01)
[2021-08-31] MEDS: Furosemide 40 MG/4 ML VIAL IVP SCH (08:11)
[2021-08-31 11:08] VITALS: BP 117/78; PULSE 73; TEMP 97.5; O2SAT 97
== END 2021-08-31 17:17 | disposition home or self-care (01) ==
LOC: 3ANU 17:08 → EMEROOARM 17:08 → SUATTDRO 22:07 → 3ANU 22:42
PROVIDERS: ADMIT Student in an Organized Health Care Education/Training Program; ATTEND Internal Medicine